=== PATIENT | male | born 1985 | race African-American/Black ===

== ENCOUNTER 2020-06-18 18:31 | Emergency (ER) | payer OTHER, SELFPAY ==
--- NOTE | ~2020-06-18 | CT_ITS ---
EXAMINATION: CT FACIAL BONES CLINICAL INFORMATION: Left-sided facial swelling rule out abscess COMPARISON: None TECHNIQUE: Axial sagittal and coronal with IV contrast. Approximately 85 mL of Omnipaque [address] examination was performed using dose optimization techniques as appropriate, variously including the following: *Automated exposure control *Adjustment of mA and/or kV according to patient size (this includes techniques or standardized protocols for targeted exams where dose is matched to indication/reason for exam; i.e. extremities or head) *Use of iterative reconstruction technique FINDINGS : SKULL BASE: Included structures at skull base are normal. BONES: Skull base, orbital bones, nasal bones, maxillary bones, mandibles, zygomatic arches, and included cervical vertebrae are normal. ORBITS: Globes are symmetric. Orbital structures are normal. SALIVARY GLANDS: Unremarkable SINUSES: There is mucosal thickening of the floor of the right maxillary sinus nonspecific. Soft tissue: CT scan has limited sensitivity evaluating soft tissue however there is some swelling abutting the left mandible, no CT evidence of abscess. CT/CT facial bones w con IMPRESSION: Mild soft tissue swelling adjacent to the left mandible, no CT evidence of an abscess. Mild mucosal thickening of the floor of the right maxillary sinus nonspecific.
[2020-06-18 18:54] VITALS: BP 113/66; PULSE 75; RESP 18; TEMP 37.2; O2SAT 97; BMI 24.3
[2020-06-18 20:12] VITALS: BP 110/81; PULSE 80; RESP 18; TEMP 36.5; O2SAT 97
[2020-06-18 21:12] LABS: MANUAL DIFF FLAG NO
[2020-06-18 21:14] LABS: Basophils Percent Auto 0.2 % (0-2); Eosinophils Absolute Auto 0.1 X10*3/uL (0.0-0.4); Eosinophils Percent Auto 1.3 % (0-4); Hematocrit 40.3 % (42-52); Hemoglobin 13.9 g/dl (14.0-18.0); Imm Gran Abs Auto 0.02 X10*3/uL (0.00-0.03); Imm Gran Pct Auto 0.2 % (0.0-0.4); Lymphocytes Absolute Auto 1.9 X10*3/uL (1.2-4.9); Lymphocytes Percent Auto 21.9 % (20-40); Mean Corpuscular HGB Conc 34.5 g/dl (31.0-36.0); Mean Corpuscular Hemoglobin 29.8 pg (27.0-33.0); Mean Corpuscular Volume 86.5 fL (80-98); Mean Platelet Volume 9.3 fL (9.4-12.4); Monocytes Absolute Auto 0.8 X10*3/uL (0.1-1.2); Monocytes Percent Auto 9.1 % (2-11); Neutrophils Absolute Auto 5.7 X10*3/uL (2.0-8.3); Neutrophils Percent Auto 67.3 % (45-73); Platelet Count 198 X10*3/uL (160-400); Red Blood Count 4.66 X10*6/uL (4.60-5.80); Red Cell Distribution Width 12.4 % (11.0-16.0); White Blood Count 8.5 X10*3/uL (4.8-10.8)
[2020-06-18] MEDS: 0.9 % Sodium Chloride 1,000 ML 999 ML IVCONT (21:16)
[2020-06-18] MEDS: Clindamycin Phosphate/D5W 600 MG/50 ML PIGGYBACK 100 MG IV (21:16)
--- NOTE | 2020-06-18 21:19 | PC.NURSE ---
18G IV Access established in left AC. Labs drawn and sent for analysis. Awaiting results. Plan for imaging with IV contrast. Normal Saline 1L and Cleocin 600mg infusing as ordered. Plan to medicate with Toradol IV for pain. ?facial/dental abscess to the left side of jaw. Swelling and pain to area. Pt is calm/cooperative, and agrees to plan of care.
[2020-06-18 21:50] LABS: Anion Gap 12 (12-20); Blood Urea Nitrogen 23 mg/dL (9-16); C Reactive Protein 0.77 mg/dL (< or = 0.50); Calcium 9.5 mg/dL (8.4-10.2); Carbon Dioxide 28 mmol/L (22-29); Chloride 103 mmol/L (96-108); Creatinine Clr Calc Pharmacy 101.3; Estimated Glomerular Filt Rate > 60; Glucose Random 88 mg/dL (60-115); Sodium 139 mmol/L (135-145)
[2020-06-18] MEDS: Ketorolac Tromethamine 15 MG/ML VIAL IVPUSH (22:17)
--- NOTE | 2020-06-18 22:41 | ED_ITS ---
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 Admits pain shoots to jaw and ear, has dentist appointment on Friday. Denies fever, chills, drainage from area, difficulty/pain with swallowing, oral swelling Related Data Previous Rx's Medication Instructions Recorded clindamycin HCl 450 mg PO Q8H 7 Days #32 cap 06/18/20 Allergies Allergy/AdvReac Type Severity Reaction Status Date / Time No Known Allergies Allergy Verified 06/18/20 18:54 Review of Systems Review of Systems: Constitutional: No Fever, No Chills ENT/Mouth: No Hearing loss, No Ear Pain, No Hoarseness, No sore throat, No Swallowing Difficulty, + cracked tooth, + facial swelling Eyes: No Eye Pain Cardiovascular: No Chest Pain, No SOB Respiratory: No Cough, No Dyspnea Gastrointestinal: No Nausea, No Vomiting, No Abdominal pain Skin: No Skin Lesions, No rash Yes all other systems are reviewed and are negative [facility] Past Medical History Attestation statement: The following information was validated with the patient. Social History Social History Advance Directives: No Advance Directives Information Provided: Yes Physical Exam Vital Signs: Vital Signs: Last Vital Signs Temp 97.7 F 06/18/20 20:12 Pulse 80 06/18/20 20:12 Resp 18 06/18/20 20:12 BP 110/81 06/18/20 20:12 Pulse Ox 97 06/18/20 20:12 Body Mass Index 24.3 Const: General: cooperative, healthy appearing, comfortable and no acute distress Orientation/consciousness: patient oriented x3 Limitations: no limitations HENMT: Other: Left mandibule with notable swelling. Left lower 1st premolar cracked. No gingival erythema/swelling/fluctuance or induration. No pus drainage. TMs wnl. No lymphadenopathy Head: Yes normal to inspection Ears: hearing grossly normal bilaterally, external ears normal and TM's normal bilaterally General nose exam: Normal external nose present Mouth: Normal oral and palatal mucosa present Throat: Yes posterior oropharynx normal, Yes tonsils normal, Yes uvula midline and No peritonsillar mass Eyes: General: appearance normal, both eyes and all related structures EOM: EOMs intact bilaterally Neck: Neck: Yes normal visual inspection, Yes no meningeal signs, Yes trachea midline and Yes supple Resp: Effort & Inspection: normal respiratory effort Cardio: Rate: regular rate Skin: Rashes: no rashes Wounds: no wounds Neuro: General: patient oriented x3 and no meningeal signs Gait exam (Neuro): Normal gait present Extrem: General: Yes normal to inspection Course Course Course Narrative: -no leukocytosis, CRP minimally elevated, BUN mildly elevated CT facial bones w con IMPRESSION: Mild soft tissue swelling adjacent to the left mandible, no CT evidence of an abscess. Mild mucosal thickening of the floor of the right maxillary sinus nonspecific. >> results discussed with patient including worrisome signs and symptoms and strict return precautions. He admits he has follow-up with his dentist on Friday. MDM - Dental/Oral MDM Narrative Medical decision making narrative: 35-year-old male with no significant past medical history presenting to the ED complaining of left-sided facial swelling x3 days s/p cracking his tooth 1 week ago. On exam VSS, NAD/well-appearing, physical exam as above. Notable facial swelling. No appreciable intraoral collection/infection. Concern for dental abscess/infection. Plan: Labs, CT, IV antibiotics, reassess Lab Data Result diagrams: 06/18/20 21:06 06/18/20 21:06 Labs: Lab Results 06/18/20 06/18/20 06/18/20 Range/Units 21:06 21:06 21:06 WBC 8.5 (4.8-10.8) X10*3/uL RBC 4.66 (4.60-5.80) X10*6/uL Hgb 13.9 L (14.0-18.0) g/dl Hct 40.3 L (42-52) % MCV 86.5 (80-98) fL MCH 29.8 (27.0-33.0) pg MCHC 34.5 (31.0-36.0) g/dl RDW 12.4 (11.0-16.0) % Plt Count 198 (160-400) X10*3/uL MPV 9.3 L (9.4-12.4) fL Immature Gran % (Auto) 0.2 (0.0-0.4) % Neut % (Auto) 67.3 (45-73) % Lymph % (Auto) 21.9 (20-40) % [place] % (Auto) 9.1 (2-11) % Eos % (Auto) 1.3 (0-4) % Baso % (Auto) 0.2 (0-2) % Lymph # (Auto) 1.9 (1.2-4.9) X10*3/uL [place] # (Auto) 0.8 (0.1-1.2) X10*3/uL Eos # (Auto) 0.1 (0.0-0.4) X10*3/uL Baso # (Auto) 0.0 (0.0-0.2) X10*3/uL Abs Immat Gran (auto) 0.02 (0.00-0.03) X10*3/uL Absolute Neuts (auto) 5.7 (2.0-8.3) X10*3/uL Absolute Nucleated RBC 0.000 (0.0-0.012) X10*3/uL Nucleated RBC % (auto) 0.0 (0.0-0.2) /100WBC Hold Blue Top SEE NOTE Sodium 139 (135-145) mmol/L Potassium 4.0 (3.3-5.1) mmol/L Chloride 103 (96-108) mmol/L Carbon Dioxide 28 (22-29) mmol/L Anion Gap 12 (12-20) BUN 23 H (9-16) mg/dL Creatinine 1.05 (0.5-1.4) mg/dL Estim Creat Clear Calc 101.3 Estimated GFR > 60 Random Glucose 88 (60-115) mg/dL Calcium 9.5 (8.4-10.2) mg/dL C-Reactive Protein 0.77 H (< or = 0.50) mg/dL Discharge Plan Discharge Clinical Impression: Facial swelling Patient Disposition: Home, Self-Care Instructions: Dental Abscess (ED) Additional Instructions: Your blood work was reassuring today in the ED Your CT scan did not show any drainable collection or abscess, does show swelling in the left side your he has. Clindamycin as an antibiotic please take as prescribed Is important that you follow-up with a dentist as soon as possible, keep urine appointment Ice her face, take Tylenol Motrin for pain If her symptoms persist or worsen, become unbearable, you of swelling in her mouth, are unable to eat or drink, or have difficulty swelling return to the ED immediately Prescriptions: New clindamycin HCl 300 mg capsule 450 mg PO Q8H 7 Days Qty: 32 RF: 0 Referrals: Doug Manuel DMD [Dentist] - 2 days Shannan Boyd DMD [Dentist] - 2 days
[2020-06-18 23:18] LABS: Erythrocyte Sedimentation Rate 2 MM/HR (0-15)
== END 2020-06-18 23:00 | disposition home or self-care (01) ==
PROVIDERS: Physician Assistant; Emergency Provider Emergency Medicine
DX: K04.7 Periapical abscess without sinus (principal); Z79.899 Other long term (current) drug therapy
CPT/HCPCS: 36415; 70487; 80048; 85025; 85652; 86140; 96365; 96375; 99284; J1885

== ENCOUNTER 2020-10-26 12:55 | Outpatient (REF) | payer OTHER, SELFPAY ==
[2020-10-26 14:24] LABS: COVID-19 Test Negative (Negative)
== END 2020-10-26 12:56 | disposition home or self-care (01) ==
LOC: HO.LAB 12:55
PROVIDERS: Visit Provider Internal Medicine
DX: Z20.822 Contact with and (suspected) exposure to COVID-19 (principal)
CPT/HCPCS: 36415; 87635; C9803

== ENCOUNTER 2020-11-04 19:57 | Emergency (ER) | payer OTHER, SELFPAY ==
[2020-11-04 20:01] VITALS: BP 127/83; PULSE 69; RESP 18; TEMP 37.3; O2SAT 98; BMI 24.3
--- NOTE | 2020-11-04 20:15 | ED.GENADULT ---
HPI - General Adult General Chief complaint: General Medical Stated complaint: Facial swelling Time Seen by Provider: 11/04/20 20:14 Source: patient Mode of arrival: ambulatory Limitations: no limitations History of Present Illness HPI narrative: Patient had Ingrown hair on the right face which he removed using a sterilized tweezer today woke up with increased swelling and pain no fever no chills open wound with minimum pus discharge Related Data Previous Rx's Medication Instructions Recorded clindamycin HCl 300 mg capsule 450 mg PO Q8H 7 Days #32 cap 06/18/20 hydrocodone 5 mg-acetaminophen 325 1 tab PO Q8H PRN 3 Days #5 tab 06/18/20 mg tablet cephalexin 500 mg capsule 500 mg PO QID 10 Days #40 cap 11/04/20 doxycycline hyclate 100 mg tablet 100 mg PO BID #20 tab 11/04/20 ibuprofen 600 mg tablet 600 mg PO Q6H PRN #20 tab 11/04/20 oxycodone 5 mg tablet 5 mg PO Q6H PRN #20 tab 11/04/20 Allergies Allergy/AdvReac Type Severity Reaction Status Date / Time amoxicillin Allergy Unknown Verified 11/04/20 20:00 Review of Systems Review of Systems: Yes all other systems are reviewed and are negative PMFSH Past Medical History Surgical History H/O: vasectomy S/P appendectomy Social History Social History Advance Directives: No Advance Directives Information Provided: No Physical Exam Vital Signs: Vital Signs: Last Vital Signs Temp 99.2 F 11/04/20 20:01 Pulse 69 11/04/20 20:01 Resp 18 11/04/20 20:01 BP 127/83 11/04/20 20:01 Pulse Ox 98 11/04/20 20:01 Body Mass Index 24.3 Const: General: no acute distress and well developed Orientation/consciousness: patient oriented x3 HENMT: Head: Yes normocephalic Face and sinus: Yes sinuses nontender, Yes erythema and Yes edema Face images: 1. Small indurated area with cellulitis around No abscess palpable Neck: Neck: Yes normal visual inspection and No lymphadenopathy Neuro: General: patient oriented x3 Discharge Plan Discharge Clinical Impression: Cellulitis and abscess of face Patient Disposition: Home, Self-Care Instructions: Cellulitis (ED), Abscess (ED) Additional Instructions: Warm compresses Take antibiotic as advised Report to the ER if swelling gets worse Prescriptions: New cephalexin 500 mg capsule 500 mg PO QID 10 Days Qty: 40 RF: 0 ibuprofen 600 mg tablet 600 mg PO Q6H PRN (Reason: pain) Qty: 20 RF: 0 doxycycline hyclate 100 mg tablet 100 mg PO BID Qty: 20 RF: 0 oxycodone 5 mg tablet 5 mg PO Q6H PRN (Reason: Pain, Moderate) Qty: 20 RF: 0 No Action clindamycin HCl 300 mg capsule 450 mg PO Q8H 7 Days Qty: 32 RF: 0 hydrocodone-acetaminophen 5-325 mg tablet 1 tab PO Q8H PRN (Reason: pain, severe) 3 Days Qty: 5 RF: 0
[2020-11-04] MEDS: cephALEXin 500 MG CAPSULE PO (20:38)
[2020-11-04] MEDS: Ibuprofen 600 MG TABLET PO (20:38)
[2020-11-04] MEDS: oxyCODONE HCl Immed Release 5 MG TABLET PO (20:39)
== END 2020-11-04 20:42 | disposition home or self-care (01) ==
PROVIDERS: Emergency Provider Internal Medicine
DX: L03.211 Cellulitis of face (principal); Z79.899 Other long term (current) drug therapy
CPT/HCPCS: 99283; 99284

== ENCOUNTER 2021-02-05 | Outpatient (REF) | payer OTHER, SELFPAY | END 2021-02-05 00:01 | disposition home or self-care (01) | LOC: HO.LAB | PROVIDERS: Visit Provider Internal Medicine | DX: Z13.89 Encounter for screening for other disorder (principal) | CPT/HCPCS: C9803; U0003; U0005 ==

== ENCOUNTER 2021-03-17 21:22 | Emergency (ER) | payer SELFPAY ==
[2021-03-17 21:29] VITALS: BP 130/81; PULSE 94; RESP 16; TEMP 37; O2SAT 97; BMI 23.6
--- NOTE | 2021-03-17 21:44 | ED_ITS ---
HPI - Skin/Abscess/Foreign Bdy General Chief complaint: Skin/Abscess/Foreign Body Stated complaint: ingrown hair a face,,swollen Time Seen by Provider: 03/17/21 21:39 History of Present Illness HPI narrative: Patient is a 36-year-old male with a history of facial swelling to the left f pia. Has a history of ingrown facial hair. Complaining of increasing swelling over the last 2 days. Was seen here last year for similar symptoms. At the time was given Keflex. Patient came back today because of the swelling. There is discharge from the area where the ingrown hair is located. Patient was expressing lots of purulence discharge from that area. Denies any headache. Denies any changes in vision. There is no difficulty with speech. No difficulty swallowing. No difficulty breathing. Patient from home. No history of recreational drug use. No history of immunocompromise state. Related Data Previous Rx's Medication Instructions Recorded clindamycin HCl 300 mg capsule 450 mg PO Q8H 7 Days #32 cap 06/18/20 hydrocodone 5 mg-acetaminophen 325 1 tab PO Q8H PRN 3 Days #5 tab 06/18/20 mg tablet cephalexin 500 mg capsule 500 mg PO QID 10 Days #40 cap 11/04/20 doxycycline hyclate 100 mg tablet 100 mg PO BID #20 tab 11/04/20 ibuprofen 600 mg tablet 600 mg PO Q6H PRN #20 tab 11/04/20 oxycodone 5 mg tablet 5 mg PO Q6H PRN #20 tab 11/04/20 doxycycline hyclate 100 mg capsule 100 mg PO BID 7 Days #14 cap 03/17/21 Allergies Allergy/AdvReac Type Severity Reaction Status Date / Time amoxicillin Allergy Unknown Verified 11/04/20 20:00 Review of Systems Verdana 4l Review of Systems: Verdana 4d Positive facial swelling Verdana 4d no change in speech no nausea no vomiting no difficulty eating no fever no difficulty breathing all system reviewed otherwise negative Verdana 4d PMFSH Past Medical History Attestation statement: The following information was validated with the patient. Surgical History H/O: vasectomy S/P appendectomy Social History Social History Advance Directives: No Physical Exam Verdana 4l Vital Signs: Verdana 4d Verdana 4d Vital Signs: Verdana 4d Verdana 4Bd Last Vital Signs Verdana 4d Employment Interviewer 4d Adalberto 4d Temp 98.6 F 03/17/21 21:29 Employment Interviewer New 4d Pulse 94 03/17/21 21:29 Employment Interviewer New 4d Resp 16 03/17/21 21:29 BP 130/81 03/17/21 21:29 Pulse Ox 97 03/17/21 21:29 BMI result Body Mass Index 23.6 Appearance: Alert. Oriented X3. No acute distress. Eyes: Pupils equal, round and reactive to light. ENT: Pharynx normal. significant facial swelling to the left side. There is no gross Fluctuance noted. There is an area that there is small amount of purulence discharge still draining. Significant swelling. Extraocular muscle intact. Posterior pharynx was normal. There is no tooth abscess palpable. Neck: Normal inspection. Neck supple. No lymph nodes noted. No crepitus CVS: Normal heart rate and rhythm. Pulses normal. Normal S1 and S2 Respiratory: No respiratory distress. Breath sounds normal. No Wheezing. No rales Abdomen: Soft and nontender. No rigidity. No distention. good BS x4 Skin: Positive cellulitis noted over the left face Extremities: No lower extremity edema. Neurovascular intact to all extremities. No Lacerations. No Rash Neuro: Oriented X 3. No motor deficit. No sensory deficit. Moving all extermities. No slurred speech MDM - Skin/Abscess/Foreign Bdy MDM Narrative Medical decision making narrative: discussed with patient the need for imaging. IV antibiotic labs. Patient did not want any labs. Understood that without the CT scan we cannot be sure that there is no abscess. Patient just wants antibiotics. Explained to patient the infection is an area very close to his brain. Further advancement of the infection can cause him harm. Including . Patient states understanding. Only wants the IV antibiotic and a prescription. He signing out against medical advice. Patient told to come back immediately if condition worsen. Follow up closely with his doctor on an outpatient basis take a picture every day. Take his antibiotic religiously. Patient states understanding. A dose of Ancef and a dose of doxycycline was given in the emergency department. Discharge Plan Discharge Clinical Impression: Cellulitis Patient Disposition: Left Against Medical Advice Instructions: Cellulitis (DC), Against Medical Advice (ED) Prescriptions: New doxycycline hyclate 100 mg capsule 100 mg PO BID 7 Days Qty: 14 0RF No Action clindamycin HCl 300 mg capsule 450 mg PO Q8H 7 Days Qty: 32 0RF hydrocodone-acetaminophen 5-325 mg tablet 1 tab PO Q8H PRN (Reason: pain, severe) 3 Days Qty: 5 0RF cephalexin 500 mg capsule 500 mg PO QID 10 Days Qty: 40 0RF ibuprofen 600 mg tablet 600 mg PO Q6H PRN (Reason: pain) Qty: 20 0RF doxycycline hyclate 100 mg tablet 100 mg PO BID Qty: 20 0RF oxycodone 5 mg tablet 5 mg PO Q6H PRN (Reason: Pain, Moderate) Qty: 20 0RF Referrals: Physician,None [Primary Care Provider] - 2 days ( Follow up with your physician in 2 days. Fever chills change of my return to the emergency department immediately. Risk of significant infection exists. Come back if he change of mind about getting imaging and additional testing.)
[2021-03-17 22:40] VITALS: BP 122/79; PULSE 84; RESP 18; TEMP 35.9; O2SAT 98
== END 2021-03-17 22:53 | disposition left against medical advice (07) ==
PROVIDERS: Emergency Provider Emergency Medicine Emergency Medical Services
DX: L03.211 Cellulitis of face (principal)
CPT/HCPCS: 96365; 99284; J0690

== ENCOUNTER 2021-03-18 12:42 | Emergency (ER) | payer SELFPAY ==
--- NOTE | ~2021-03-18 | CT_ITS ---
EXAMINATION: CT FACIAL BONES WITH CONTRAST CLINICAL INFORMATION: Left facial abscess. COMPARISON: None TECHNIQUE: Axial 3 mm thin and reformatted 1.5 minutes thin sagittal coronal images of facial bones were obtained without contrast. This CT examination was performed using dose optimization techniques as appropriate, variously including the following: *Automated exposure control *Adjustment of mA and/or kV according to patient size (this includes techniques or standardized protocols for targeted exams where dose is matched to indication/reason for exam; i.e. extremities or head) *Use of iterative reconstruction technique DLP: 326 mGy-cm FINDINGS: There is no acute maxillofacial fracture. The pterygoid plates are intact. The zygomatic arches are intact. The lamina papyracea are intact. The orbital rims are intact. There is minimal mucoperiosteal thickening bilateral maxillary sinuses. Bilateral mastoid sinuses are clear. No air-fluid levels are seen. There is midline nasal septum. The turbinates are symmetrical and normal The ostiomeatal complexes are clear. The lamina papyracea are intact. The ethmoid roofs are symmetric. The carotid canals are normally covered by bone. There is moderate left maxillary soft tissue swelling likely cellulitis. There is no drainable abscess. No maxillary or mandibular periapical disease is seen. The mastoid air cells and visualized middle ear cavities are well-aerated. There are reactionary lymph nodes in the left neck measuring 1.1 x 0.8 cm level 2 and 1.5 cm x 0.5 cm level 3 left neck. Few scattered lymph nodes are seen in level 4 as well. The orbits are normal. The TMJs are unremarkable. The imaged portions of the brain demonstrate no acute abnormality. CT/CT facial bones w con IMPRESSION: Moderate left maxillary soft tissue swelling/cellulitis. There is no drainable abscess. Visualized salivary glands are symmetrical and normal. No periapical disease, bony erosive changes involving the mandibular maxillary cortex. Reactionary abnormal lymph nodes level 2, level 3 and level 4.
[2021-03-18 12:48] VITALS: BP 152/90; PULSE 88; RESP 18; TEMP 38.1; O2SAT 97; BMI 23.6
[2021-03-18 13:03] LABS: Hemoglobin 12.9 g/dl (14.0-18.0); Mean Corpuscular HGB Conc 34.9 g/dl (31.0-36.0); Mean Corpuscular Hemoglobin 29.9 pg (27.0-33.0); Mean Corpuscular Volume 85.8 fL (80.0-98.0); Platelet Count 178 X10*3/uL (160-400); Red Blood Count 4.31 X10*6/uL (4.60-5.80); Red Cell Distribution Width 11.9 % (11.0-16.0); White Blood Count 17.3 X10*3/uL (4.8-10.8)
[2021-03-18 13:23] LABS: Anion Gap 12 (12-20); Blood Urea Nitrogen 15 mg/dL (9-16); Calcium 9.3 mg/dL (8.4-10.2); Carbon Dioxide 31 mmol/L (22-29); Chloride 93 mmol/L (96-108); Creatinine Clr Calc Pharmacy 121.2; Estimated Glomerular Filt Rate > 60; Glucose Random 135 mg/dL (60-115); Potassium 3.7 mmol/L (3.3-5.1); Sodium 132 mmol/L (135-145)
[2021-03-18 14:25] VITALS: BP 117/70; PULSE 94; RESP 16; TEMP 37.2; O2SAT 98
--- NOTE | 2021-03-18 14:43 | ED_ITS ---
HPI - Skin/Abscess/Foreign Bdy General Chief complaint: Skin/Abscess/Foreign Body Stated complaint: facial infection Time Seen by Provider: 03/18/21 14:21 Source: patient Mode of arrival: ambulatory Limitations: no limitations History of Present Illness HPI narrative: 36-year-old male who was seen in the emergency room yesterday for left facial swelling from an ingrown hair. Patient's face only became very swollen in the last 2 days. He has been expressing pus, and using warm compresses. States that abscess is still draining. Yesterday patient only wanted antibiotics, did not want imaging, signed out AMA after being given 1 dose of Ancef and a prescription for doxycycline. Patient has taken 2 doses of doxycycline, but states that he has returned because his face is not better. States he had the same thing happened in October 2020. States that it resolved with antibiotics. MD complaint: abscess/boil Onset (ago): day(s) (2) Tetanus up to date: unsure Location: face Severity: severe Severity scale (1-10): 6 Quality: aching Pain Consistency: constant Associated symptoms: denies other symptoms Treatments prior to arrival: antibiotic Related Data Previous Rx's Medication Instructions Recorded clindamycin HCl 300 mg capsule 450 mg PO Q8H 7 Days #32 cap 06/18/20 hydrocodone 5 mg-acetaminophen 325 1 tab PO Q8H PRN 3 Days #5 tab 06/18/20 mg tablet cephalexin 500 mg capsule 500 mg PO QID 10 Days #40 cap 11/04/20 doxycycline hyclate 100 mg tablet 100 mg PO BID #20 tab 11/04/20 ibuprofen 600 mg tablet 600 mg PO Q6H PRN #20 tab 11/04/20 oxycodone 5 mg tablet 5 mg PO Q6H PRN #20 tab 11/04/20 doxycycline hyclate 100 mg capsule 100 mg PO BID 7 Days #14 cap 03/17/21 Allergies Allergy/AdvReac Type Severity Reaction Status Date / Time amoxicillin Allergy Unknown Verified 11/04/20 20:00 Review of Systems Verdana 4l Constitutional: Verdana 4d Verdana 4d Constitutional: Verdana 4d Denies body ache(s), Denies chills, Denies fatigue, Denies fever(s), Denies headache(s), Denies malaise and Denies weakness Verdana 4l Eyes: Verdana 4d Verdana 4d Eyes: Verdana 4d Denies diplopia Verdana 4l ENT: Verdana 4d Denies vertigo, Denies dizziness, Denies otalgia, Reports facial pain, Denies headache(s), Reports lip swelling, Denies mouth pain, Denies post nasal drip, Denies sinus pain, Denies sinus pressure, Denies sore throat and Denies throat swelling VerdanaVerdana 4d Comments: facial swelling, no dental pain Cardiovascular: Cardiovascular: Denies chest pain, Denies syncope, Denies leg edema, Denies lightheadedness, Denies Loss of Consciousness, Denies palpitations and Denies dyspnea Respiratory: Respiratory: Denies chest congestion, Denies cough and Denies dyspnea Gastrointestinal: Gastrointestinal: Denies abdominal pain, Denies hematochezia, Denies constipation, Denies diarrhea and Denies vomiting Musculoskeletal: Musculoskeletal: Reports no additional musculoskeletal complaints Neurologic: Denies confusion, Denies vertigo, Denies dizziness, Denies syncope, Denies headache(s) and Denies weakness Psychiatric: Psychiatric: Denies anxiety, Denies confusion and Denies depression Endocrine: Endocrine: Denies fatigue and Denies palpitations Allergic/Immunologic: Allergic/Immunologic: Reports lip swelling and Denies throat swelling PMFSH Past Medical History Medical History (Updated 03/18/21 @ 16:54 by AURORA Rodriguez) Cellulitis and abscess of face Surgical History H/O: vasectomy S/P appendectomy Social History Social History Advance Directives: No Advance Directives Information Provided: Yes Physical Exam Verdana 4l Vital Signs: Verdana 4d Verdana 4d Vital Signs: Verdana 4d Verdana 4Bd Last Vital Signs Verdana 4d Dampener New 4d Dampener New 4d Temp 99.0 F 03/18/21 14:25 Dampener New 4d Pulse 94 03/18/21 14:25 Dampener New 4d Resp 16 03/18/21 14:25 BP 117/70 03/18/21 14:25 Pulse Ox 98 03/18/21 14:25 BMI result Body Mass Index 23.6 Const: General: No confusion Nutritional Appearance: well nourished Orientation/consciousness: No confusion Limitations: no limitations HENMT: Head: Yes other (swollen left side of face) Ears: hearing grossly normal bilaterally, external ears normal, mastoids normal and no periauricular adenopathy General nose exam: Normal external nose present Face and sinus: No face symmetric, Yes erythema and Yes sinus tenderness Face images: 1. swelling and erythema with pinpoint fluctuance Mouth: no audible dysphonia, no drooling and lip abnormal Teeth and gingiva: dentition normal Throat: Yes posterior oropharynx normal, Yes uvula midline and No peritonsillar mass Eyes: Conjunctivae: conjunctivae normal Pupils: Equal, round and reactive pupils present EOM: EOMs intact bilaterally Neck: Neck: Yes full ROM, Yes no lymphadenopathy and Yes supple Resp: Effort & Inspection: normal respiratory effort and able to speak in complete sentences Auscultation: clear to auscultation bilaterally, no crackles, no rales, no rhonchi and no wheezes Cardio: Rate: regular rate Rhythm: regular rhythm Heart sounds: S1 normal heart sound present and S2 normal heart sound present Neuro: General: No confusion Cranial nerves: Yes Equal, round and reactive pupils present Extrem: General: Yes normal to inspection and Yes full ROM Psych: Appearance: grossly normal Affect: normal affect Attitude: cooperative Thought process: Normal thought process present Course Course Course Narrative: 36-year-old male presents for left-sided facial abscess. Patient was seen emergency room yesterday and prescribed doxycycline. On presentation today, patient was febrile 100.6, and has a luekocytosis 17.3. actic 0.9. Labs are all otherwise unremarkable Awaiting results of facial CT. Patient is getting 1 dose of IV antibiotics, giving cefepime. I did order vancomycin and anticipating admission, the patient says he needs to go home 1st before he can be admitted. Pt cannot stay for vanco. We did draw blood cultures. Dr Wagner saw pt today with me, he saw pt yesterday, says his facial abscess is no worse. Said is less red, but has upper eyelid swelling today. Pt states he has to go home to take care of his daughter. We advised him that now with a fever, he should stay and be admitted for IV antibiotics. Pt states he must go home. Advised he can go home AMA, and return, and Dr Wagner will admit him for IV antibiotics. Pt left AMA, did not wait for CT results Reevaluation(s) Reevaluation #1: CT/CT facial bones w con IMPRESSION: Moderate left maxillary soft tissue swelling/cellulitis. There is no drainable abscess. Visualized salivary glands are symmetrical and normal. ? No periapical disease, bony erosive changes involving the mandibular maxillary cortex. ? Reactionary abnormal lymph nodes level 2, level 3 and level 4. MDM - Skin/Abscess/Foreign Bdy Lab Data Result diagrams: 03/18/21 12:57 03/18/21 12:57 Labs: Lab Results 03/18/21 03/18/21 03/18/21 Range/Units 12:57 12:57 15:33 WBC 17.3 H (4.8-10.8) X10*3/uL RBC 4.31 L (4.60-5.80) X10*6/uL Hgb 12.9 L (14.0-18.0) g/dl Hct 37.0 L (42.0-52.0) % MCV 85.8 (80.0-98.0) fL MCH 29.9 (27.0-33.0) pg MCHC 34.9 (31.0-36.0) g/dl RDW 11.9 (11.0-16.0) % Plt Count 178 (160-400) X10*3/uL MPV 9.0 L (9.4-12.4) fL Absolute Nucleated RBC 0.000 (0.0-0.012) X10*3/uL Nucleated RBC % (auto) 0.0 (0.0-0.2) /100WBC Sodium 132 L (135-145) mmol/L Potassium 3.7 (3.3-5.1) mmol/L Chloride 93 L (96-108) mmol/L Carbon Dioxide 31 H (22-29) mmol/L Anion Gap 12 (12-20) BUN 15 (9-16) mg/dL Creatinine 0.87 (0.5-1.4) mg/dL Estim Creat Clear Calc 121.2 Estimated GFR > 60 Random Glucose 135 H D (60-115) mg/dL Lactic Acid 0.9 (0.5-2.0) mmol/L Calcium 9.3 (8.4-10.2) mg/dL Discharge Plan Discharge Clinical Impression: Cellulitis and abscess of face Patient Disposition: Left Against Medical Advice Prescriptions: No Action clindamycin HCl 300 mg capsule 450 mg PO Q8H 7 Days Qty: 32 0RF hydrocodone-acetaminophen 5-325 mg tablet 1 tab PO Q8H PRN (Reason: pain, severe) 3 Days Qty: 5 0RF cephalexin 500 mg capsule 500 mg PO QID 10 Days Qty: 40 0RF ibuprofen 600 mg tablet 600 mg PO Q6H PRN (Reason: pain) Qty: 20 0RF doxycycline hyclate 100 mg tablet 100 mg PO BID Qty: 20 0RF oxycodone 5 mg tablet 5 mg PO Q6H PRN (Reason: Pain, Moderate) Qty: 20 0RF doxycycline hyclate 100 mg capsule 100 mg PO BID 7 Days Qty: 14 0RF Interventions: ED Discharge Assessment Last Done: 03/18/21 16:46 Discharge Date/Time: 03/18/21 16:46
--- NOTE | 2021-03-18 15:15 | HE.PHANOTE ---
Vancomycin dosing- dose changed to loading dose of 1500mg (20mg/kg). Will follow up if hospitalist continues. Eric SalcedoD
--- NOTE | 2021-03-18 15:35 | P.CONGS_ITS ---
History of Present Illness Consult details Consult date: 03/18/21 Narrative: 35m here in the ED for swelling on an area of the elft cheek. He was here last night for thissame problem. He descibes this swelling as having started yesterday. There was some redness on the area, but he denies drainage. He left AMA last night but came back because of worsening swelling. He says he had a similar swelling befiore and has problems with ingrown hair. He denies any trauma or insect bite. Review of Systems Verdana 4l Constitutional: Verdana 4d Constitutional: Verdana 4d Verdana 4d Denies chills and Denies fever(s) Verdana 4l Cardiovascular: Verdana 4d Cardiovascular: Verdana 4d Verdana 4d Denies chest pain, Denies dyspnea and Denies dyspnea on exertion Verdana 4l Respiratory: Verdana 4d Verdana 4d Respiratory: Verdana 4d Denies cough, Denies dyspnea and Denies dyspnea on exertion Verdana 4l Gastrointestinal: Verdana 4d Gastrointestinal: Verdana 4d Verdana 4d Denies hematochezia and Denies change in bowel habits Verdana 4l Genitourinary: Verdana 4d Verdana 4d Genitourinary: Verdana 4d Denies hematuria and Denies difficulty urinating Verdana 4l Musculoskeletal: Verdana 4d Musculoskeletal: Verdana 4d Verdana 4d Denies back pain and Denies limited range of motion Verdana 4l Neurologic: Verdana 4d Denies focal weakness and Denies convulsions Verdana 4l Psychiatric: Verdana 4d Verdana 4d Psychiatric: Verdana 4d Denies depression and Denies mood swings PMF Past Medical History Medical History Cellulitis and abscess of face Surgical History Surgical History H/O: vasectomy S/P appendectomy Social History Social History Advance Directives: No Meds Allergies Allergy/AdvReac Type Severity Reaction Status Date / Time amoxicillin Allergy Unknown Verified 11/04/20 20:00 Active Medications: Current Medications Sodium Chloride (Ns) 2,245.29 mls @ 2,245.29 mls/hr 30 ml/kg infuse over 1 hr (2245.29 ml) IV .Q1H STA Stop: 03/18/21 15:55 Vancomycin HCl 1,500 mg/ (Sodium Chloride) 500 mls @ 333.333 mls/hr IV ONCE ONE Stop: 03/18/21 16:43 Pharmacy Consult (Consult Rx Vancomycin Dosing) 1 each MISCELLANE DAILY PRN PRN Reason: Consult order Home Medications Medication Instructions Recorded Confirmed Last Taken Type No Known Home Meds 03/19/21 03/19/21 Unknown History Physical Exam Verdana 4l Vital Signs: Verdana 4d Verdana 4d Vital Signs: Verdana 4d Verdana 4Bd Last Vital Signs Verdana 4d Child Care Lead Teacher New 4d Child Care Lead Teacher New 4d Temp 99.0 F 03/18/21 14:25 Child Care Lead Teacher New 4d Pulse 94 03/18/21 14:25 Child Care Lead Teacher New 4d Resp 16 03/18/21 14:25 BP 117/70 03/18/21 14:25 Pulse Ox 98 03/18/21 14:25 BMI result Body Mass Index 23.6 Const: General: comfortable and no acute distress Orientation/consciousness: patient oriented x3 HENMT: Other: left cheek near dickson - large area of induration, ?central fluctuance, redness, mild tenderness, edema of surround cheek Neck: Neck: Yes no lymphadenopathy Resp: Auscultation: clear to auscultation bilaterally Cardio: Rhythm: regular rhythm GI: Palpation (GI): Soft to palpation, nontender and no guarding Neuro: General: patient oriented x3 Results Labs Result diagrams: 03/18/21 12:57 03/18/21 12:57 Labs: Abnormal lab results 03/18/21 03/18/21 Range/Units 12:57 12:57 WBC 17.3 H (4.8-10.8) X10*3/uL RBC 4.31 L (4.60-5.80) X10*6/uL Hgb 12.9 L (14.0-18.0) g/dl Hct 37.0 L (42.0-52.0) % MPV 9.0 L (9.4-12.4) fL Sodium 132 L (135-145) mmol/L Chloride 93 L (96-108) mmol/L Carbon Dioxide 31 H (22-29) mmol/L Random Glucose 135 H D (60-115) mg/dL Short CBC 03/18/21 Range/Units 12:57 WBC 17.3 H (4.8-10.8) X10*3/uL Hgb 12.9 L (14.0-18.0) g/dl Hct 37.0 L (42.0-52.0) % Plt Count 178 (160-400) X10*3/uL BMP 03/18/21 12:57 Sodium 132 L Potassium 3.7 Chloride 93 L Carbon Dioxide 31 H BUN 15 Creatinine 0.87 Calcium 9.3 All other labs normal. Assessment and Plan (1) Cellulitis and abscess of face: Status: Acute I explained to him that it would be ebst to do an ia nd D unde rlocal anesthesia to make sure there is no fluid collection. His CT scan shows a lot of soft tissue edema and inflammation but there is no obvious abscess. However, there seems to a small area of central fluctuance, and in view of the large induration, I told him it is best to do an I and D and IV abx. He says he really needs to leave now and just came because he was instructed to come back last night. He does does not wants naything done except for oral antibiotics, and syas he had exactly the same problem last year with the same severity, and that had resolved with just antibiotics. He understands my recommendation is to drain and for him to stay for IV abx, but he has refused. The ED physician was involved with the discussion. Procedures Date of Service Date of Service: 03/18/21
[2021-03-18 15:52] LABS: Lactic Acid 0.9 mmol/L (0.5-2.0)
[2021-03-18] MEDS: iohexoL 350 MG/ML 100 ML INFUS..BTL 85 ML IV (16:14)
[2021-03-18] MEDS: cefEPime HCl 2 GM in 0.9 % Sodium Chloride 50 ML IV (16:16)
[2021-03-18] MEDS: Diphth,Pertus(ACell),Tet Adult 0.5 ML SYRINGE IM (16:40)
== END 2021-03-18 16:47 | disposition left against medical advice (07) ==
PROVIDERS: Physician Assistant; Emergency Provider Emergency Medicine
DX: L03.211 Cellulitis of face (principal); L02.01 Cutaneous abscess of face; Z79.899 Other long term (current) drug therapy
CPT/HCPCS: 36415; 70487; 80048; 83605; 85027; 87040; 87071; 87077; 87186; 87205; 90471; 90715; 96360; 96361; 96372; 99283; 99284; J0692; Q9967

== ENCOUNTER 2021-03-19 00:34 | Inpatient (IN) | payer SELFPAY ==
[2021-03-19 00:40] VITALS: BP 133/89; PULSE 115; RESP 18; TEMP 37.6; O2SAT 98; BMI 23.6
--- NOTE | 2021-03-19 00:43 | ED_ITS ---
HPI - Skin/Abscess/Foreign Bdy General Chief complaint: General Medical Stated complaint: Face swelling Time Seen by Provider: 03/19/21 00:38 History of Present Illness HPI narrative: Patient is a 36-year-old male presented to the emergency department the last 2 days for a redness cellulitis infection to the left face. Patient decided to come back this morning. Positive pain localized area. There is no difficulty breathing. There is no difficulty swallowing. Patient's voice is normal. No cough no congestion or upper respiratory symptoms. No dental issues. Patient from home. Patient left against medical advice 2 days in a row. During the 1st visit patient was given doxycycline on an outpatient basis after dose of IV antibiotic was given. Yesterday patient was given a dose of cefepime. Unable to give patient a dose of vancomycin as patient wanted to leave. Related Data Previous Rx's Medication Instructions Recorded clindamycin HCl 300 mg capsule 450 mg PO Q8H 7 Days #32 cap 06/18/20 hydrocodone 5 mg-acetaminophen 325 1 tab PO Q8H PRN 3 Days #5 tab 06/18/20 mg tablet cephalexin 500 mg capsule 500 mg PO QID 10 Days #40 cap 11/04/20 doxycycline hyclate 100 mg tablet 100 mg PO BID #20 tab 11/04/20 ibuprofen 600 mg tablet 600 mg PO Q6H PRN #20 tab 11/04/20 oxycodone 5 mg tablet 5 mg PO Q6H PRN #20 tab 11/04/20 doxycycline hyclate 100 mg capsule 100 mg PO BID 7 Days #14 cap 03/17/21 Allergies Allergy/AdvReac Type Severity Reaction Status Date / Time amoxicillin Allergy Unknown Verified 11/04/20 20:00 Review of Systems Verdana 4l Review of Systems: Verdana 4d Positive swelling to the Verdana 4d left face Verdana 4d Yes all other systems are reviewed and are negative [facility] Past Medical History Attestation statement: The following information was validated with the patient. Medical History Cellulitis and abscess of face Surgical History H/O: vasectomy S/P appendectomy Social History Social History Advance Directives: No Physical Exam Verdana 4l Vital Signs: Verdana 4d Verdana 4d Vital Signs: Verdana 4d Verdana 4d Appearance: Alert. Oriented X3. No acute distress. Eyes: Pupils equal, round and reactive to light. ENT: Pharynx normal. Neck: Normal inspection. Neck supple. No lymph nodes noted. No crepitus CVSCVS: Normal heart rate and rhythm. Pulses normal. Normal S1 and S2 Respiratory: No respiratory distress. Breath sounds normal. No Wheezing. No rales Abdomen: Soft and nontender. No rigidity. No distention. good BS x4 Skin: Positive swelling to the left face. All the way up to the upper lid. The eye does not seem to be affected. There is no gross dental abscess palpable. There is an area of drainage noted near the cheek. The redness extends all the way down to the mandibular area. There is no malocclusion noted. The floor the mouth was soft. The skin was warm to touch and red. Extremities: No lower extremity edema. Neurovascular intact to all extremities. No Lacerations. No Rash Neuro: Oriented X 3. No motor deficit. No sensory deficit. Moving all extermities. No slurred speech MDM - Skin/Abscess/Foreign Bdy MDM Narrative Medical decision making narrative: Patient has cellulitis with fever yesterday. Had been on antibiotic for 2 days. Given patient has a fever yesterday. He is willing to stay at the current time. Will admit for IV antibiotics. Patient's CT scan was just done last night. It did not show an abscess. Cellulitis only. Currently in stable condition case discussed with hospitalist team. Patient's lactate was normal no evidence for sepsis. Differential Diagnosis Differential diagnosis: Likely cellulitis Medical Records Attestation: I reviewed the patient's medical records. Lab Data Attestation: I reviewed the patient's lab results. Discharge Plan Discharge Prescriptions: No Action clindamycin HCl 300 mg capsule 450 mg PO Q8H 7 Days Qty: 32 0RF hydrocodone-acetaminophen 5-325 mg tablet 1 tab PO Q8H PRN (Reason: pain, severe) 3 Days Qty: 5 0RF cephalexin 500 mg capsule 500 mg PO QID 10 Days Qty: 40 0RF ibuprofen 600 mg tablet 600 mg PO Q6H PRN (Reason: pain) Qty: 20 0RF doxycycline hyclate 100 mg tablet 100 mg PO BID Qty: 20 0RF oxycodone 5 mg tablet 5 mg PO Q6H PRN (Reason: Pain, Moderate) Qty: 20 0RF doxycycline hyclate 100 mg capsule 100 mg PO BID 7 Days Qty: 14 0RF
--- NOTE | 2021-03-19 00:52 | PC.NURSE ---
Per MD Wagner, no repeat labs required as all were obtained @ previous visit on 03/18. IV established, Covid swab obtained. Pt medicated per APR. Med Rec completed at bedside with pt.
[2021-03-19] MEDS: vancomycin HCL 1,000 MG in 0.9 % Sodium Chloride 250 ML 270 MG IV (00:59)
[2021-03-19] MEDS: 0.9 % Sodium Chloride 1,000 ML 999 ML IV (00:59)
[2021-03-19] MEDS: Acetaminophen 325 MG TABLET 650 MG PO (01:04)
[2021-03-19 01:29] LABS: COVID-19 Test Negative (Negative)
[2021-03-19 02:00] VITALS: BP 117/69; PULSE 82; RESP 16; TEMP 37.1; O2SAT 98
--- NOTE | 2021-03-19 02:28 | P.HPHOSP_ITS ---
History of Present Illness Date of Service: 03/19/21 Chief Complaint: Left facial swelling 36-year-old male with a past medical history of facial cellulitis secondary to ingrown hair; otherwise no significant past medical history presented to the hospital today a chief complaint of left facial pain and swelling over the past 2-3 days. Patient reported that for the past 3 days he has been having left side of the face swelling, erythematous, tender; denies any fevers. Initially presented to the ER couple days ago and does not want to stay, was given antibiotics. Presented today to the ER again with worsening cellulitis and discharge from small open wound. Noted white pus discharge. Denies any swallowing difficulty, denies any difficulty chewing. Denies any oral swelling. Denies any intra ocular changes, redness; Mentions that his whole left side of the face is swollen including the upper and lower lids similar to the last time. Denies any headaches or blurry visions. Review of all other systems is negative except mentioned above ER course: Per ER team patient initially presented during the morning, had a facial CT done which showed facial cellulitis; recommended admission for IV antibiotics-but patient left AMA and came back in the evening; and decided to be admitted to the hospital for IV antibiotics. Patient received vancomycin. Admitted for further management. [facility] Medical History Cellulitis and abscess of face Pertinent family history: Reviewed Surgical History H/O: vasectomy S/P appendectomy Social History Advance Directives: No Meds Allergies Allergy/AdvReac Type Severity Reaction Status Date / Time amoxicillin Allergy Unknown Verified 11/04/20 20:00 Active Medications: Current Medications Vancomycin HCl 1,000 mg/ (Sodium Chloride) 270 mls @ 270 mls/hr IV Q12H [facility] Pharmacy Consult (Consult Rx Vancomycin Dosing) 1 each MISCELLANE DAILY PRN PRN Reason: Consult order Pharmacy Consult (Consult Rx Vancomycin Dosing) 1 each MISCELLANE DAILY PRN PRN Reason: Consult order Home Medications Medication Instructions Recorded Confirmed Last Taken Type No Known Home Meds 03/19/21 03/19/21 Unknown History Physical Exam Vital Signs and Narrative: Vital Signs: Last Vital Signs Temp 98.8 F 03/19/21 02:00 Pulse 82 03/19/21 02:00 Resp 16 03/19/21 02:00 BP 117/69 03/19/21 02:00 Pulse Ox 98 03/19/21 02:00 BMI result Body Mass Index 23.6 Gen: Appears be in no acute distress HEENT: NCAT, Moist mucosa. EOMI. Left side of the face is warm,tender and swollen. Draining pus. Left cheek is indurated. Oral cavity is clear. Pulmonary: Vesicular breath sounds, fair air entry CVS: Normal S1-S2 Abdomen: BS+, Soft, Nontender Extremities: Warm well perfused Neuro: Alert and awake. Results Labs Labs: Laboratory Results - last 24 hr 03/19/21 00:57 COVID-19 ([facility]) Negative COVID-19 Clin Com See Note Assessment and Plan (1) Cellulitis and abscess of face: Status: Acute Plan 36-year-old male with a past medical history of facial cellulitis secondary to ingrown hair; otherwise no significant past medical history presented to the hospital today a chief complaint of left facial pain and swelling. Noted to have left facial cellulitis. Admitted for further management. Left facial cellulitis: CT of the face showed cellulitis but no evidence of drainable abscess. Patient had small open wound with pus drainage. Cultures were sent. Blood cultures were ordered. Noted to have left upper and lower eyelid involvement, no intra-articular involvement. Patient denies any difficulty chewing. Patient received IV vancomycin-will continue Id consult DVT prophylaxis: Subcu heparin Code status: Full code Quality Stroke Does the patient have a stroke diagnosis?: No VTE Prior VTE?: No VTE Risk Level:: Medical - moderate - high VTE Device Contraindication: Treatment Not Indicated VTE Drug Contraindication: N/A - Med Ordered
--- NOTE | 2021-03-19 03:23 | PC.NURSE ---
Pt resting on stretcher in NAD, breathing with ease on RA. Pt aaox4, refused subcut heparin. Risks/benefits explained, pt continues to refuse. Pt stretcher low locked, call delgado within reach
--- NOTE | 2021-03-19 04:31 | PM.EVENT ---
Event Note Date of Service: 03/19/21 Event Note: Against medical advise discharge note: Patient mentioned that he has to take care of his daughter early in the morning and does not want to be stayed in the hospital. Here in the patient was explained in detail at the time of admission in regards the hospital stay. Explained in detail about the current health situation, risks of leaving against medical advice interrupting the treatment. Mentioned in detail about the risks including worsening infection, sepsis, septic shock, septic thrombo embolism, even brain infection and may even lead to . Patient verbalized that he understood the risks and he still wanted to leave against medical advice. Patient is given prescription for clindamycin 600 mg t.i.d. for 10 days. Urged to follow-up with PCP closely. Also explained that IV antibiotics are more effective than oral and patient verbalized that he understood.
[2021-03-19 04:33] VITALS: BP 133/87; PULSE 80; RESP 18; TEMP 36.9; O2SAT 99
--- NOTE | 2021-03-19 04:38 | PC.NURSE ---
Pt rang call sandy requesting RN to bedside to provide update on plan of care. This RN to bedside, pt aaox4, states I'm just curious what's going and what the plan is because I need to be home to help my daughter get ready for school around 6am. This RN explains that this RN was at bedside during Dr Cates's admission assessment when plan for admission to hospital for IV abx was discussed with pt who agreed to plan. Pt expresses nobody explained what that really meant to me. My background isn't in hospitals, so I didn't know what that meant. I thought I got my IV antibiotics and was just waiting to go home. This RN explains that there seems to be a breakdown in communication/understanding of the meaning of admission. Pt agrees, verbalizes that he is frustrated with the lack of education regarding his plan of care that he's rec'd. This RN informs pt that he will likely be admitted for 1-2 days in hospital which means he will stay in [facility] [place] this time, consecutively, to receive IV abx at regularly scheduled intervals. Pt verbalizes understandings, expresses gratitude for clarification, and states he is unable to do so d/t need for childcare. This RN calls Dr Cates to make him aware of pt's request to leave [facility] at this time. Dr Cates states the swelling to his face is progressing rapidly. He needs to stay for his admission. This was explained to him. This RN informs Dr Cates that he must speak to patient directly as this RN has already provide education to pt regarding the plan of care and the importance in adhering to it. Dr Cates requests to speak to pt over the phone. This RN provides phone to patient for Dr Cates to speak directly with patient. When pt disconnects with Dr Cates, pt informs this RN he's coming down to go over AMA paperwork with me and he's sending me home with prescriptions for antibiotics. Dr Cates to bedside, reviews AMA paperwork, this RN witnesses AMA.
== END 2021-03-19 04:55 | disposition other institution (70) | DRG 603 ==
LOC: HO.ED 00:51 → HO.EDOVER 02:32
PROVIDERS: Admitting Provider Hospitalist; Emergency Provider Emergency Medicine Emergency Medical Services; Visit Provider Hospitalist
DX: L03.211 Cellulitis of face (principal); Z88.0 Allergy status to penicillin; Z20.822 Contact with and (suspected) exposure to COVID-19
CPT/HCPCS: 87635; 99284; J3370

== ENCOUNTER 2022-02-28 09:41 | Emergency (ER) | payer OTHER, SELFPAY ==
[2022-02-28 09:58] VITALS: BP 119/83; PULSE 79; RESP 18; TEMP 36.6; O2SAT 98; BMI 23.6
--- NOTE | 2022-02-28 10:26 | ED_ITS ---
HPI - General Adult General Chief complaint: Wound/Laceration Stated complaint: L arm inj Time Seen by Provider: 02/28/22 10:21 History of Present Illness HPI narrative: 37-year-old male who presents to the ER with a draining left biceps abscess secondary to IVDA. Patient states the abscess has been draining and thinks he just needs antibiotics at this time. Patient denies fever chills shortness of breath or other complaints at this time. Patient states he is allergic to amoxicillin and has a history of facial cellulitis in the past. At this time patient has no pain in left arm. Patient has been using warm compresses at home. Patient states he has information on bowel methadone clinic another detox options. Related Data Previous Rx's Medication Instructions Recorded cephalexin 500 mg capsule 500 mg PO Q6H 10 days #40 caps 02/28/22 doxycycline hyclate 100 mg tablet 100 mg PO BID #20 tabs 02/28/22 Allergies Allergy/AdvReac Type Severity Reaction Status Date / Time amoxicillin Allergy Unknown Verified 11/04/20 20:00 Review of Systems Constitutional: Constitutional: Denies chills, Denies fever(s) and Denies headache(s) Eyes: Eyes: Denies loss of vision ENT: Denies headache(s) and Denies sore throat Cardiovascular: Cardiovascular: Denies chest pain and Denies dyspnea Respiratory: Respiratory: Denies dyspnea Gastrointestinal: Gastrointestinal: Denies nausea and Denies vomiting Musculoskeletal: Comments: Patient denies pain in his left arm Integumentary/Breasts: Skin/Breast: Reports other Comments: Draining skin abscess lesion to the left arm Neurologic: Denies headache(s) and Denies loss of vision [facility] Past Medical History Attestation statement: The following information was validated with the patient. Medical History Cellulitis and abscess of face Surgical History H/O: vasectomy S/P appendectomy Physical Exam ED Vital Signs: Vital Signs - 24 hr 02/28/22 09:58 Temperature 98 F Pulse Rate 79 Respiratory Rate 18 Blood Pressure 119/83 Pulse Oximetry 98 Oxygen Delivery Method Room Air BMI result Body Mass Index 23.6 vital signs have been reviewed as normal and appeared to be correct. Blood pressure normal. Heart rate normal. Respiration rate normal. Temperature normal. Oxygen saturation normal. Appearance: Alert. Oriented X3. No acute distress. Head: Normal external exam. Normocephalic. Atraumatic. Eyes: PERRLA. EOMI ENT: Pharynx normal. Uvula midline. Moist mucous membranes. CVS: Heart regular rate and rhythm no murmurs and rubs Respiratory: Breath sounds are clear to auscultation bilaterally. No accessory muscle use noted. Back: Full range of motion noted. Skin: Left bicep patient has draining abscess. Areas of induration erythema no obvious lymphangitis distal pulses sensation intact full range of motion. No large area of fluctuance overall abscess is nontender. Extremities: Full range of motion of upper lower extremities. Neuro: Oriented X 3. No motor deficit. No sensory deficit. Reflexes normal. Const Other: Left bicep draining skin abscess Cellulitis IV drug abuse Medical Decision Making Medical Decision Making MDM Narrative: 37-year-old male with a longstanding history of IV drug use presents with a draining abscess of the left biceps. Patient states he has got a fair amount of pus side of the abscess at this time and does not believe there is any more in there at this time. Patient states he has no pain at this time and has been using warm compresses. Patient denies fever at home. Symptoms consistent with a draining left biceps abscess secondary to IV drug use. Plan to place patient on dual coverage antibiotics at this time. Patient given strict instructions to return if symptoms worsen. Lack of fluctuance will not explore or open at this time Case discussed at length with patient about possible methadone clinic and/or other options for detox patient states he has information will follow-up is is own accord. Discharge Plan Discharge Clinical Impression: Abscess, Cellulitis Patient Disposition: Home, Self-Care Instructions: Cellulitis (ED), Abscess (ED) Additional Instructions: Continue warm compresses 3 to 4 times a day Return if increased fever pain redness or swelling Antibiotics as directed Follow-up with outpatient detox or and/or methadone clinic Prescriptions: New doxycycline hyclate 100 mg tablet 100 mg PO BID Qty: 20 0RF cephalexin 500 mg capsule 500 mg PO Q6H 10 Days Qty: 40 0RF
--- NOTE | 2022-02-28 10:30 | PC.NURSE ---
pt alert and oriented, vss. pt c/o L arm draining abscess, he admits to IVDA. he denies f/chills. no n/v/d.
== END 2022-02-28 10:54 | disposition home or self-care (01) ==
PROVIDERS: Emergency Provider Emergency Medicine Emergency Medical Services
DX: L03.114 Cellulitis of left upper limb (principal)
CPT/HCPCS: 99282; 99283

== ENCOUNTER 2022-05-13 12:47 | Emergency (ER) | payer SELFPAY ==
--- NOTE | ~2022-05-13 | CT_ITS ---
EXAMINATION: CT FACIAL BONES WITH CONTRAST CLINICAL INFORMATION: Periorbital cellulitis and swelling. COMPARISON: CT of the facial bones 03/18/2021, 06/18/2020 TECHNIQUE: Axial images obtained through the facial bones after intravenous injection of 85 mL Omnipaque 350. Coronal and sagittal reformatted images are performed at CT scanner This CT examination was performed using dose optimization techniques as appropriate, variously including the following: *Automated exposure control *Adjustment of mA and/or kV according to patient size (this includes techniques or standardized protocols for targeted exams where dose is matched to indication/reason for exam; i.e. extremities or head) *Use of iterative reconstruction technique DLP: 573 mGy-cm FINDINGS: Generalized edema and soft tissue swelling in the preseptal soft tissues of the left left eyelid and left forehead. No drainable fluid collection. No abscess. The orbital globes and retrobulbar structures are normal. The paranasal sinuses and mastoid air cells are normal. No acute osseous abnormality. No focal bone lesion. Deformity of the medial wall of the left orbit likely from an old fracture. There is degenerative disc height narrowing and endplate spur C6-C7. No evidence of significant lymphadenopathy. The parotid glands and submandibular glands and the partially visualized thyroid are unremarkable. The nasopharynx, pharynx and hypopharynx structures are normal. Normal enhancement of the vasculature. Partially visualized intracranial structures are normal. CT/CT facial bones w IV con IMPRESSION: Edema and soft tissue swelling in the preseptal soft tissues of the left eyelid and left forehead. No drainable fluid collection or abscess.
[2022-05-13 13:13] VITALS: BP 142/79; PULSE 100; RESP 19; TEMP 36.6; O2SAT 98; BMI 23.6
--- NOTE | 2022-05-13 13:13 | ED.EYEPROB ---
HPI - Eye Problem General Chief complaint: General Medical <AURORA Murillo - Last Filed: 05/13/22 13:15> Stated complaint: l eye issue <UARORA Murillo - Last Filed: 05/13/22 13:15> Time Seen by Provider: 05/13/22 16:12 <AURORA Murillo - Last Filed: 05/13/22 13:15> Source: patient <Maryanne Beck NP - Last Filed: 05/13/22 18:02> Mode of arrival: ambulatory <Maryanne Beck NP - Last Filed: 05/13/22 18:02> Limitations: no limitations <Maryanne Beck NP - Last Filed: 05/13/22 18:02> History of Present Illness HPI Narrative: 37-year-old male presents with left eye swelling after popping a pimple on his forehead. He does not report any changes in vision, but cannot open his eyelids because of the swelling. <Maryanne Beck NP - Last Filed: 05/13/22 18:02> Onset (ago): day(s) (1) <Maryanne Beck NP - Last Filed: 05/13/22 18:02> Onset description: gradual <aMryanne Beck NP - Last Filed: 05/13/22 18:02> Duration: progressively worsening <Maryanne Beck NP - Last Filed: 05/13/22 18:02> Location: left eye <Maryanne Beck NP - Last Filed: 05/13/22 18:02> Place: home <Maryanne Beck NP - Last Filed: 05/13/22 18:02> Mechanism: other (Painful popping) <Maryanne Beck NP - Last Filed: 05/13/22 18:02> Severity: moderate <Mayranne Beck NP - Last Filed: 05/13/22 18:02> Severity scale (1-10): 6 <Maryanne Beck NP - Last Filed: 05/13/22 18:02> If Pain, Quality: burning and aching <Maryanne Beck NP - Last Filed: 05/13/22 18:02> Associated symptoms: none <Maryanne Beck NP - Last Filed: 05/13/22 18:02> Related Data Patient tetanus UTD: Yes <Maryanne Beck NP - Last Filed: 05/13/22 18:02> Home medications: Previous Rx's Medication Instructions Recorded cephalexin 500 mg capsule 500 mg PO Q6H 10 days #40 caps 02/28/22 doxycycline hyclate 100 mg tablet 100 mg PO BID #20 tabs 02/28/22 <AURORA Murillo - Last Filed: 05/13/22 13:15> Allergies/adverse reactions: Allergies Allergy/AdvReac Type Severity Reaction Status Date / Time amoxicillin Allergy Unknown Verified 05/13/22 13:12 <AURORA Murillo - Last Filed: 05/13/22 13:15> Review of Systems Review of Systems: Constitutional: No Fever, No Chills ENT/Mouth: No Ear Pain, No Hoarseness, No sore throat Eyes: No Eye Pain, positive left eyelid and facial Swelling, No Redness, No Foreign Body Cardiovascular: No Chest Pain, No SOB Respiratory: No Cough, No Dyspnea Gastrointestinal: No Nausea, No Vomiting, No Diarrhea, No abdominal Pain Genitourinary: No Dysuria, No Hematuria Musculoskeletal: No joint pain, No Myalgias, No Joint Swelling Skin: No Skin lacerations, No rash Neuro: No Weakness, No Numbness, No Paresthesias, No Loss of Consciousness, No Dizziness, No Headache <Maryanne Beck NP - Last Filed: 05/13/22 18:02> Yes all other systems are reviewed and are negative <Maryanne Beck NP - Last Filed: 05/13/22 18:02> [facility] Past Medical History Attestation statement: The following information was validated with the patient. <Maryanne Beck NP - Last Filed: 05/13/22 18:02> Source: old records reviewed <Maryanne Beck NP - Last Filed: 05/13/22 18:02> Medical History: Medical History Cellulitis and abscess of face <AURORA Murillo - Last Filed: 05/13/22 13:15> Surgical History: Surgical History H/O: vasectomy S/P appendectomy <AURORA Murillo - Last Filed: 05/13/22 13:15> Social History Social History: Social History Smoked in Last 30 Days: No Use of substances other than those prescribed or required for medical reasons: No Any prior treatment program specific to substance use: No Advance Directives: No Advance Directives Information Provided: No <AURORA Murillo - Last Filed: 05/13/22 13:15> Physical Exam Vital Signs: Vital Signs: Last Vital Signs Temp 98 F 05/13/22 13:13 Pulse 100 05/13/22 13:13 Resp 05/13/22 13:13 BP 142/79 H 05/13/22 13:13 Pulse Ox 98 05/13/22 13:13 O2 Del Method Room Air 05/13/22 13:13 BMI result Body Mass Index 23.6 <AURORA Murillo - Last Filed: 05/13/22 13:15> Vital Signs: Last Vital Signs Temp 98 F 05/13/22 13:13 Pulse 100 05/13/22 13:13 Resp 05/13/22 13:13 BP 142/79 H 05/13/22 13:13 Pulse Ox 98 05/13/22 13:13 O2 Del Method Room Air 05/13/22 13:13 BMI result Body Mass Index 23.6 <Maryanne Bekc NP - Last Filed: 05/13/22 18:02> Appearance: Alert. Oriented X3. Mild distress. Eyes: Pupils equal, round and reactive to light. Left orbital swelling ENT: Pharynx normal. Neck: Normal inspection. Neck supple. CVS: Normal heart rate and rhythm. Pulses normal. Respiratory: No respiratory distress. Breath sounds normal. Abdomen: Soft and nontender. Skin: Skin warm and dry. Normal skin color. Normal skin turgor. Extremities: No lower extremity edema. Neuro: No motor deficit. No sensory deficit. 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 Swelling progressively worse today, left eye swollen shut. Afebrile and not tachycardic in triage. Plan: CT facial bones w/ con, labs, abx. 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 Swelling progressively worse today, left eye swollen shut. Afebrile and not tachycardic in triage. Plan: CT facial bones w/ con, labs, abx. 16:10 37-year-old male presents with left eye cellulitis and swelling. He has a past medical history of IVDA, history of MRSA with abscess to the left orbit and face. Patient stated that the swelling started today after he popped a pimple. Does not report any pain on extraocular movement, and when he ambrose his eyelid open he does not any changes in vision. He does not wear contact lenses, and states this happens to him often. Has had several episodes of admission in the past for similar presentation, and left against medical advice. Patient is asking how long he is going to stay here, I did informed this patient that he should be admitted for IV antibiotics for periorbital cellulitis, and that he has risk for severe eye infection, loss of vision, sepsis and severe debilitation. I did discuss the plan with this patient in detail, he agrees for IV antibiotics, facial CT, and admission. Labs indicate H&H of 11.2/34.7, consistent with his prior values, ESR of 34, alk-phos of 163, CRP of 5.4. CT facial bones pending. Patient is alert and oriented x4, responding appropriately, and cooperative at this time. 17:35 patient no longer in his room, security searching for this patient. High suspicion for this patient's elopement. RN called [place] [employer] informed them that this patient still has his IV line in. <Maryanne Beck NP - Last Filed: 05/13/22 18:02> Medications Administered Generic Name Dose Route Start Last Admin Trade Name Freq PRN Reason Stop Dose Admin Vancomycin HCl 2,000 mg in 520 mls @ 260 mls/hr 05/13/22 16:20 05/13/22 16:46 Vancomycin/Ns IV 05/13/22 18:19 260 mls/hr ONCE ONE Administration Discontinued Medications Generic Name Dose Route Start Last Admin Trade Name Freq PRN Reason Stop Dose Admin Ibuprofen 600 mg 05/13/22 15:50 05/13/22 16:01 Ibuprofen 600 Mg Tablet PO 05/13/22 15:51 600 mg ONCE ONE Administration Iohexol 100 ml 05/13/22 17:20 05/13/22 17:20 Iohexol 350 Mg/Ml 100 Ml Infus..Btl IV 05/13/22 17:21 85 ml ONCE ONE Administration <AURORA Murillo - Last Filed: 05/13/22 13:15> Medications Administered Generic Name Dose Route Start Last Admin Trade Name Freq PRN Reason Stop Dose Admin Vancomycin HCl 2,000 mg in 520 mls @ 260 mls/hr 05/13/22 16:20 05/13/22 16:46 Vancomycin/Ns IV 05/13/22 18:19 260 mls/hr ONCE ONE Administration Discontinued Medications Generic Name Dose Route Start Last Admin Trade Name Freq PRN Reason Stop Dose Admin Ibuprofen 600 mg 05/13/22 15:50 05/13/22 16:01 Ibuprofen 600 Mg Tablet PO 05/13/22 15:51 600 mg ONCE ONE Administration Iohexol 100 ml 05/13/22 17:20 05/13/22 17:20 Iohexol 350 Mg/Ml 100 Ml Infus..Btl IV 05/13/22 17:21 85 ml ONCE ONE Administration <Maryanne Beck NP - Last Filed: 05/13/22 18:02> Medical Decision Making Differential Diagnosis Differential Diagnoses: The differential diagnosis associated with the presentation includes <Maryanne Beck NP - Last Filed: 05/13/22 18:02> Periorbital cellulitis, facial cellulitis, abscess <Maryanne Beck NP - Last Filed: 05/13/22 18:02> Admission/Observation Consideration of admission/observation: Escalation of care including admission/observation considered <Maryanne Beck NP - Last Filed: 05/13/22 18:02> Will require admission <Maryanne Beck NP - Last Filed: 05/13/22 18:02> Lab Data [facility] Lab Attestation statement: I reviewed the patient's lab results. <Maryanne Beck NP - Last Filed: 05/13/22 18:02> Result Diagrams: 05/13/22 13:32 05/13/22 13:32 <AURORA Murillo - Last Filed: 05/13/22 13:15> Labs: Lab Results 05/13/22 05/13/22 05/13/22 Range/Units 13:32 13:32 13:32 WBC 7.7 (4.8-10.8) X10*3/uL RBC 4.66 (4.60-5.80) X10*6/uL Hgb 11.2 L (14.0-18.0) g/dl Hct 34.7 L (42.0-52.0) % MCV 74.5 L (80.0-98.0) fL MCH 24.0 L (27.0-33.0) pg MCHC 32.3 (31.0-36.0) g/dl RDW 15.6 (11.0-16.0) % Plt Count 243 D (160-400) X10*3/uL MPV 8.4 L (9.4-12.4) fL Immature Gran % (Auto) 0.3 (0.0-0.4) % Neut % (Auto) 80.6 H (45-73) % Lymph % (Auto) 9.3 L (20-40) % Haskell % (Auto) 9.0 (2-11) % Eos % (Auto) 0.5 (0-4) % Baso % (Auto) 0.3 (0-2) % Lymph # (Auto) 0.7 L (1.2-4.9) X10*3/uL Haskell # (Auto) 0.7 (0.1-1.2) X10*3/uL Eos # (Auto) 0.0 (0.0-0.4) X10*3/uL Baso # (Auto) 0.0 (0.0-0.2) X10*3/uL Abs Immat Gran (auto) 0.02 (0.00-0.03) X10*3/uL Absolute Neuts (auto) 6.2 (2.0-8.3) x10*3/uL Absolute Nucleated RBC 0.000 (0.0-0.012) X10*3/uL Nucleated RBC % (auto) 0.0 (0.0-0.2) /100WBC ESR 34 H (0-15) MM/HR Sodium 134 L (135-145) mmol/L Potassium 3.9 (3.3-5.1) mmol/L Chloride 101 (96-108) mmol/L Carbon Dioxide 23 (22-29) mmol/L Anion Gap 14 (12-20) BUN 15 (9-16) mg/dL Creatinine 0.85 (0.5-1.4) mg/dL Estim Creat Clear Calc 122.8 Estimated GFR > 60 Random Glucose 122 H (60-115) mg/dL Lactic Acid (0.5-2.0) mmol/L Calcium 8.9 (8.4-10.2) mg/dL Magnesium 2.1 (1.6-2.6) mg/dL Total Bilirubin 0.5 (0.0-1.0) mg/dL Direct Bilirubin 0.2 (0.0-0.5) mg/dL AST 28 (5-37) U/L ALT 25 (0-40) U/L Alkaline Phosphatase 163 H (39-117) U/L C-Reactive Protein 5.40 H (< or = 0.50) mg/dL Total Protein 7.7 (6.5-8.0) g/dL Albumin 3.6 (3.5-5.0) g/dL 05/13/22 Range/Units 16:38 WBC (4.8-10.8) X10*3/uL RBC (4.60-5.80) X10*6/uL Hgb (14.0-18.0) g/dl Hct (42.0-52.0) % MCV (80.0-98.0) fL MCH (27.0-33.0) pg MCHC (31.0-36.0) g/dl RDW (11.0-16.0) % Plt Count (160-400) X10*3/uL MPV (9.4-12.4) fL Immature Gran % (Auto) (0.0-0.4) % Neut % (Auto) (45-73) % Lymph % (Auto) (20-40) % Haskell % (Auto) (2-11) % Eos % (Auto) (0-4) % Baso % (Auto) (0-2) % Lymph # (Auto) (1.2-4.9) X10*3/uL Haskell # (Auto) (0.1-1.2) X10*3/uL Eos # (Auto) (0.0-0.4) X10*3/uL Baso # (Auto) (0.0-0.2) X10*3/uL Abs Immat Gran (auto) (0.00-0.03) X10*3/uL Absolute Neuts (auto) (2.0-8.3) x10*3/uL Absolute Nucleated RBC (0.0-0.012) X10*3/uL Nucleated RBC % (auto) (0.0-0.2) /100WBC ESR (0-15) MM/HR Sodium (135-145) mmol/L Potassium (3.3-5.1) mmol/L Chloride (96-108) mmol/L Carbon Dioxide (22-29) mmol/L Anion Gap (12-20) BUN (9-16) mg/dL Creatinine (0.5-1.4) mg/dL Estim Creat Clear Calc Estimated GFR Random Glucose (60-115) mg/dL Lactic Acid 1.2 (0.5-2.0) mmol/L Calcium (8.4-10.2) mg/dL Magnesium (1.6-2.6) mg/dL Total Bilirubin (0.0-1.0) mg/dL Direct Bilirubin (0.0-0.5) mg/dL AST (5-37) U/L ALT (0-40) U/L Alkaline Phosphatase (39-117) U/L C-Reactive Protein (< or = 0.50) mg/dL Total Protein (6.5-8.0) g/dL Albumin (3.5-5.0) g/dL <AURORA Murillo - Last Filed: 05/13/22 13:15> Lab Results 05/13/22 05/13/22 05/13/22 Range/Units 13:32 13:32 13:32 WBC 7.7 (4.8-10.8) X10*3/uL RBC 4.66 (4.60-5.80) X10*6/uL Hgb 11.2 L (14.0-18.0) g/dl Hct 34.7 L (42.0-52.0) % MCV 74.5 L (80.0-98.0) fL MCH 24.0 L (27.0-33.0) pg MCHC 32.3 (31.0-36.0) g/dl RDW 15.6 (11.0-16.0) % Plt Count 243 D (160-400) X10*3/uL MPV 8.4 L (9.4-12.4) fL Immature Gran % (Auto) 0.3 (0.0-0.4) % Neut % (Auto) 80.6 H (45-73) % Lymph % (Auto) 9.3 L (20-40) % Haskell % (Auto) 9.0 (2-11) % Eos % (Auto) 0.5 (0-4) % Baso % (Auto) 0.3 (0-2) % Lymph # (Auto) 0.7 L (1.2-4.9) X10*3/uL Haskell # (Auto) 0.7 (0.1-1.2) X10*3/uL Eos # (Auto) 0.0 (0.0-0.4) X10*3/uL Baso # (Auto) 0.0 (0.0-0.2) X10*3/uL Abs Immat Gran (auto) 0.02 (0.00-0.03) X10*3/uL Absolute Neuts (auto) 6.2 (2.0-8.3) x10*3/uL Absolute Nucleated RBC 0.000 (0.0-0.012) X10*3/uL Nucleated RBC % (auto) 0.0 (0.0-0.2) /100WBC ESR 34 H (0-15) MM/HR Sodium 134 L (135-145) mmol/L Potassium 3.9 (3.3-5.1) mmol/L Chloride 101 (96-108) mmol/L Carbon Dioxide 23 (22-29) mmol/L Anion Gap 14 (12-20) BUN 15 (9-16) mg/dL Creatinine 0.85 (0.5-1.4) mg/dL Estim Creat Clear Calc 122.8 Estimated GFR > 60 Random Glucose 122 H (60-115) mg/dL Lactic Acid (0.5-2.0) mmol/L Calcium 8.9 (8.4-10.2) mg/dL Magnesium 2.1 (1.6-2.6) mg/dL Total Bilirubin 0.5 (0.0-1.0) mg/dL Direct Bilirubin 0.2 (0.0-0.5) mg/dL AST 28 (5-37) U/L ALT 25 (0-40) U/L Alkaline Phosphatase 163 H (39-117) U/L C-Reactive Protein 5.40 H (< or = 0.50) mg/dL Total Protein 7.7 (6.5-8.0) g/dL Albumin 3.6 (3.5-5.0) g/dL 05/13/22 Range/Units 16:38 WBC (4.8-10.8) X10*3/uL RBC (4.60-5.80) X10*6/uL Hgb (14.0-18.0) g/dl Hct (42.0-52.0) % MCV (80.0-98.0) fL MCH (27.0-33.0) pg MCHC (31.0-36.0) g/dl RDW (11.0-16.0) % Plt Count (160-400) X10*3/uL MPV (9.4-12.4) fL Immature Gran % (Auto) (0.0-0.4) % Neut % (Auto) (45-73) % Lymph % (Auto) (20-40) % Haskell % (Auto) (2-11) % Eos % (Auto) (0-4) % Baso % (Auto) (0-2) % Lymph # (Auto) (1.2-4.9) X10*3/uL Haskell # (Auto) (0.1-1.2) X10*3/uL Eos # (Auto) (0.0-0.4) X10*3/uL Baso # (Auto) (0.0-0.2) X10*3/uL Abs Immat Gran (auto) (0.00-0.03) X10*3/uL Absolute Neuts (auto) (2.0-8.3) x10*3/uL Absolute Nucleated RBC (0.0-0.012) X10*3/uL Nucleated RBC % (auto) (0.0-0.2) /100WBC ESR (0-15) MM/HR Sodium (135-145) mmol/L Potassium (3.3-5.1) mmol/L Chloride (96-108) mmol/L Carbon Dioxide (22-29) mmol/L Anion Gap (12-20) BUN (9-16) mg/dL Creatinine (0.5-1.4) mg/dL Estim Creat Clear Calc Estimated GFR Random Glucose (60-115) mg/dL Lactic Acid 1.2 (0.5-2.0) mmol/L Calcium (8.4-10.2) mg/dL Magnesium (1.6-2.6) mg/dL Total Bilirubin (0.0-1.0) mg/dL Direct Bilirubin (0.0-0.5) mg/dL AST (5-37) U/L ALT (0-40) U/L Alkaline Phosphatase (39-117) U/L C-Reactive Protein (< or = 0.50) mg/dL Total Protein (6.5-8.0) g/dL Albumin (3.5-5.0) g/dL <PAUL Yadav Last Filed: 05/13/22 18:02> Independent Interpretation I performed an independent interpretation of an: CT Scan <PAUL Yadav Last Filed: 05/13/22 18:02> Radiology Impression Discussion of test interpretation with radiology: I have reviewed the radiologist's reading. <PAUL Yadav Last Filed: 05/13/22 18:02> External Record Review External record reviewed: Inpatient record, Outpatient record, Prior outpatient labs and Prior outpatient radiology <PAUL Yadav Last Filed: 05/13/22 18:02> Prescription Management I considered prescription management with: Antibiotic <Maryanne Beck NP - Last Filed: 05/13/22 18:02> Chronic Conditions Patient?s care impacted by: Other (IVDA) <Maryanne Beck NP - Last Filed: 05/13/22 18:02> Social Determinants Patient?s care significantly limited by Social Determinants of Health including: Other Social Determinant of Health <Maryanne Beck NP - Last Filed: 05/13/22 18:02> Discharge Plan Discharge Clinical Impression: Cellulitis and abscess of face <AURORA Murillo - Last Filed: 05/13/22 13:15> Patient Disposition: Elopement <AURORA Murillo - Last Filed: 05/13/22 13:15> Prescriptions: No Action doxycycline hyclate 100 mg tablet 100 mg PO BID Qty: 20 0RF cephalexin 500 mg capsule 500 mg PO Q6H 10 Days Qty: 40 0RF <AURORA Murillo - Last Filed: 05/13/22 13:15> Discharge Date/Time: 05/13/22 18:01 <AURORA Murillo - Last Filed: 05/13/22 13:15>
[2022-05-13 13:44] LABS: MANUAL DIFF FLAG NO
[2022-05-13 13:46] LABS: Basophils Percent Auto 0.3 % (0-2); Eosinophils Percent Auto 0.5 % (0-4); Hematocrit 34.7 % (42.0-52.0); Hemoglobin 11.2 g/dl (14.0-18.0); Imm Gran Abs Auto 0.02 X10*3/uL (0.00-0.03); Imm Gran Pct Auto 0.3 % (0.0-0.4); Lymphocytes Absolute Auto 0.7 X10*3/uL (1.2-4.9); Lymphocytes Percent Auto 9.3 % (20-40); Mean Corpuscular HGB Conc 32.3 g/dl (31.0-36.0); Mean Corpuscular Volume 74.5 fL (80.0-98.0); Mean Platelet Volume 8.4 fL (9.4-12.4); Monocytes Absolute Auto 0.7 X10*3/uL (0.1-1.2); Neutrophils Absolute Auto 6.2 x10*3/uL (2.0-8.3); Neutrophils Percent Auto 80.6 % (45-73); Platelet Count 243 X10*3/uL (160-400); Red Blood Count 4.66 X10*6/uL (4.60-5.80); Red Cell Distribution Width 15.6 % (11.0-16.0); White Blood Count 7.7 X10*3/uL (4.8-10.8)
[2022-05-13 14:19] LABS: Alanine Aminotransferase 25 U/L (0-40); Albumin Level 3.6 g/dL (3.5-5.0); Alkaline Phosphatase 163 U/L (39-117); Anion Gap 14 (12-20); Aspartate Amino Transferase 28 U/L (5-37); Bilirubin Direct 0.2 mg/dL (0.0-0.5); Bilirubin Total 0.5 mg/dL (0.0-1.0); Blood Urea Nitrogen 15 mg/dL (9-16); Calcium 8.9 mg/dL (8.4-10.2); Carbon Dioxide 23 mmol/L (22-29); Chloride 101 mmol/L (96-108); Creatinine Clr Calc Pharmacy 122.8; Estimated Glomerular Filt Rate > 60; Glucose Random 122 mg/dL (60-115); Magnesium 2.1 mg/dL (1.6-2.6); Potassium 3.9 mmol/L (3.3-5.1); Sodium 134 mmol/L (135-145); Total Protein 7.7 g/dL (6.5-8.0)
[2022-05-13 14:27] LABS: Erythrocyte Sedimentation Rate 34 MM/HR (0-15)
[2022-05-13] MEDS: Ibuprofen 600 MG TABLET PO (16:01)
[2022-05-13 17:06] LABS: Lactic Acid 1.2 mmol/L (0.5-2.0)
[2022-05-13] MEDS: iohexoL 350 MG/ML 100 ML INFUS..BTL IV (17:20)
--- NOTE | 2022-05-13 17:52 | PC.NURSE ---
Patient eloping from ED with IV in place. Provider made aware, and police department called.
== END 2022-05-13 18:01 | disposition left against medical advice (07) ==
PROVIDERS: Nurse Practitioner Family; Physician Assistant; Emergency Provider Emergency Medicine
DX: L03.211 Cellulitis of face (principal); H57.12 Ocular pain, left eye; R51.9 Headache, unspecified; Z79.899 Other long term (current) drug therapy
CPT/HCPCS: 36415; 70487; 80048; 80076; 83605; 83735; 85025; 85652; 86140; 87040; 96374; 99284; J3370; Q9967

== ENCOUNTER 2023-03-15 02:22 | Emergency (ER) | payer MEDICAID, SELFPAY ==
--- NOTE | ~2023-03-15 | CT_ITS ---
EXAMINATION: CT ANGIOGRAM OF THE CHEST WITH AND WITHOUT CONTRAST (CT PULMONARY ANGIOGRAM FOR PE) CLINICAL INFORMATION: Reason for Exam R sided pleuritic pain elevated ddimer COMPARISON: Chest x-ray from just prior TECHNIQUE: Prior to contrast administration, noncontrast localization images were obtained. Subsequently, multidetector volumetric imaging was performed from the thoracic inlet to below the diaphragms following the administration of 65 mL Omnipaque 350 intravenous contrast. No contrast reaction reported Sagittal, coronal, and MIP oblique sagittal reformatted images were obtained on the CT workstation, uploaded to PACS, and reviewed. This CT examination was performed using dose optimization techniques as appropriate, variously including the following: *Automated exposure control *Adjustment of mA and/or kV according to patient size (this includes techniques or standardized protocols for targeted exams where dose is matched to indication/reason for exam; i.e. extremities or head) *Use of iterative reconstruction technique Total exam dose-length product 282 mGy-cm FINDINGS: QUALITY OF STUDY/CONTRAST BOLUS: Satisfactory. PULMONARY ARTERIES: No filling defects are seen in the main, lobar, or segmental pulmonary arteries to suggest the presence of pulmonary emboli. There is inadequate evaluation of some of the distal vasculature bilaterally due to bolus timing, with artifact, and streak artifact especially in the right upper lobe. THORACIC AORTA: No aneurysm. LUNG: Bibasilar subsegmental atelectasis. There is a right minor fissural nodule measuring 4 mm, suggestive of a lymph node. PLEURA: No pleural effusion or pneumothorax. MEDIASTINUM: Visualized thyroid gland is grossly unremarkable. There are enlarged mediastinal lymph nodes in the paratracheal, prevascular, and subcarinal regions measuring up to approximately 1.3 cm short axis dimension. Bilateral hilar lymphadenopathy is also noted. Cardiac size is within normal limits; no pericardial effusion. CORONARY ARTERY CALCIFICATION: None visualized on this study. CHEST WALL/AXILLA: No axillary or internal mammary lymphadenopathy. OSSEOUS STRUCTURES: No acute or suspicious osseous abnormality. UPPER ABDOMEN: Unremarkable. No reflux of contrast into the hepatic veins to suggest elevated right heart pressures. CT/CT angio chest PE protocol IMPRESSION: 1. No pulmonary embolus identified. Of note, there is inadequate evaluation of some of the distal vasculature due to bolus timing and streak artifact. 2. Mediastinal and bilateral hilar lymphadenopathy. This could be inflammatory in nature such as from sarcoidosis, though a malignant etiology could also have a similar appearance. Further workup is recommended. 3. Right minor fissural nodule measuring 4 mm, statistically likely a lymph node. According to the UPDATED 2017 Fleischner Society recommendations, the advised follow-up imaging for solid nodules < 6 mm is: LOW RISK PATIENT: No routine follow-up. HIGH RISK PATIENT: Optional CT at 12 months. VTE: negative.
--- NOTE | ~2023-03-15 | XR_ITS ---
EXAMINATION: XR RIBS, RIGHT CLINICAL INFORMATION: Pain COMPARISON: None available. TECHNIQUE: 3 views of the right ribs were obtained. FINDINGS: Lung volumes are symmetric. There is streaky right basilar opacity favoring subsegmental atelectasis. No additional consolidation bilaterally. No evidence of pneumothorax, pleural effusion, or pulmonary edema. Cardiac size appears within normal limits. Bilateral hilar prominence suggesting lymphadenopathy, better assessed on subsequent CT. No displaced fracture is seen. XR/XR ribs RT min 3V w CXR1V IMPRESSION: No displaced fracture identified. Streaky right basilar opacity favoring atelectasis. Bilateral hilar prominence suggesting lymphadenopathy, better assessed on subsequent CT.
[2023-03-15 02:29] VITALS: BP 135/90; PULSE 110; RESP 16; TEMP 36.3; O2SAT 97; BMI 26.2
--- NOTE | 2023-03-15 02:42 | ECG_ITS ---
Test Reason : CHEST PAIN Blood Pressure : / mmHG Vent. Rate : 108 BPM Atrial Rate : 108 BPM P-R Int : 132 ms QRS Dur : 100 ms QT Int : 318 ms P-R-T Axes : 058 055 027 degrees QTc Int : 426 ms Sinus tachycardia Otherwise normal ECG No previous ECGs available Referred By: Leela Merritt Electronically Signed By:HANNAH GONZALES MD
[2023-03-15 03:01] LABS: MANUAL DIFF FLAG NO
[2023-03-15 03:04] LABS: Basophils Percent Auto 0.3 % (0-2); Eosinophils Absolute Auto 0.1 X10*3/uL (0.0-0.4); Eosinophils Percent Auto 1.4 % (0-4); Hematocrit 36.3 % (42.0-52.0); Hemoglobin 12.2 g/dl (14.0-18.0); Imm Gran Abs Auto 0.01 X10*3/uL (0.00-0.03); Imm Gran Pct Auto 0.2 % (0.0-0.4); Lymphocytes Absolute Auto 0.8 X10*3/uL (1.2-4.9); Lymphocytes Percent Auto 13.1 % (20-40); Mean Corpuscular HGB Conc 33.6 g/dl (31.0-36.0); Mean Corpuscular Hemoglobin 24.8 pg (27.0-33.0); Mean Corpuscular Volume 73.8 fL (80.0-98.0); Mean Platelet Volume 8.6 fL (9.4-12.4); Monocytes Absolute Auto 0.7 X10*3/uL (0.1-1.2); Monocytes Percent Auto 11.9 % (2-11); Neutrophils Absolute Auto 4.2 x10*3/uL (2.0-8.3); Neutrophils Percent Auto 73.1 % (45-73); Platelet Count 275 X10*3/uL (160-400); Red Blood Count 4.92 X10*6/uL (4.60-5.80); Red Cell Distribution Width 14.8 % (11.0-16.0); White Blood Count 5.7 X10*3/uL (4.8-10.8)
[2023-03-15 03:11] LABS: D Dimer High Sensitivity 495 NG/ML
[2023-03-15 03:19] LABS: COVID-19 Test Negative (Negative); IDNOW Serial# 6674DD1D
[2023-03-15 03:20] LABS: Alanine Aminotransferase 36 U/L (0-40); Alkaline Phosphatase 114 U/L (39-117); Anion Gap 17 (12-20); Aspartate Amino Transferase 40 U/L (5-37); Bilirubin Direct 0.2 mg/dL (0.0-0.5); Bilirubin Total 0.6 mg/dL (0.0-1.0); Blood Urea Nitrogen 11 mg/dL (9-16); Calcium 10.3 mg/dL (8.4-10.2); Carbon Dioxide 27 mmol/L (22-29); Chloride 98 mmol/L (96-108); Creatinine Clr Calc Pharmacy 123.1; Estimated Glomerular Filt Rate > 60; Glucose Random 88 mg/dL (60-115); Magnesium 1.7 mg/dL (1.6-2.6); Potassium 4.3 mmol/L (3.3-5.1); Sodium 138 mmol/L (135-145); Total Protein 8.6 g/dL (6.5-8.0)
[2023-03-15 03:22] LABS: Troponin-I High Sensitivity 3.8 ng/L (<3.5-35.0)
[2023-03-15] MEDS: iohexoL 350 MG/ML 100 ML INFUS..BTL 65 ML IV (03:40)
[2023-03-15] MEDS: 0.9 % Sodium Chloride 1,000 ML 999 ML IV (03:42)
--- NOTE | 2023-03-15 03:54 | ED.CHESTPAIN ---
HPI - Chest Pain General Chief Complaint: General Medical Stated Complaint: rt side flank pain Time Seen by Provider: 03/15/23 03:18 Source: patient Mode of arrival: ambulatory Limitations: no limitations History of Present Illness HPI narrative: 38 yo male with PMH of prior appendectomy has had 4 days of R sided pleuritic chest pain he has not hx of ACS or VTE. No fevers no URI symptoms admits to sniffing cocaine but had symptoms beforehand. He does not inject. He has no rash. He has no night sweats or weight loss. MD complaint: chest pain Onset (ago): day(s) (4) Timing of current episode: episodic Prior episodes: Yes Onset: during rest Pain location: right chest Pain radiation: none Severity: moderate Quality: sharp Relieving factors: nothing Exacerbating factors: inspiration Associated symptoms: dyspnea Treatment prior to arrival: none Related Data Previous Rx's Medication Instructions Recorded cephalexin 500 mg capsule 500 mg PO Q6H 10 days #40 caps 02/28/22 doxycycline hyclate 100 mg tablet 100 mg PO BID #20 tabs 02/28/22 prednisone 20 mg tablet 40 mg (2 x 20 mg) PO DAILY 5 days 03/15/23 #10 tabs Allergies Allergy/AdvReac Type Severity Reaction Status Date / Time amoxicillin Allergy Unknown Verified 03/15/23 02:29 Review of Systems Review of Systems: Constitutional : No Weight loss, No Fever, No Chills ENT/Mouth : No sore throat, No Rhinorrhea Eyes: No Eye Pain, No Swelling Cardiovascular : pos Chest Pain, pos SOB, no Dyspnea on Exertion, No Orthopnea, No Edema, No Palpitations Respiratory : No Cough, No Sputum Gastrointestinal : no Nausea, No Vomiting, No Diarrhea, No abdominal Pain, No Hematochezia, No Melena Genitourinary : No Dysuria, No Urinary Frequency Musculoskeletal : No joint pain, No Myalgias, No Joint Swelling Skin : No Skin Lesions, No rash Neuro : No Weakness, No Numbness, No Dizziness, No Headache Psych : No Anxiety/Panic, No Depression All other systems reviewed and are negative [facility] Past Medical History Attestation statement: The following information was validated with the patient. Source: old records reviewed Medical History Cellulitis and abscess of face Surgical History S/P appendectomy H/O: vasectomy Social History Social History Smoked in Last 30 Days: No Use of substances other than those prescribed or required for medical reasons: Yes Substance Use Type: Crack/Cocaine Last Used Substance: Hours (ago) Any prior treatment program specific to substance use: No Advance Directives: No Advance Directives Information Provided: No Physical Exam Vital Signs: Vital Signs: Last Vital Signs Temp 97.4 F 03/15/23 02:29 Pulse 110 H 03/15/23 02:29 Resp 16 03/15/23 02:29 BP 135/90 H 03/15/23 02:29 Pulse Ox 97 03/15/23 02:29 O2 Del Method Room Air 03/15/23 02:29 BMI result Body Mass Index 26.2 Appearance: Alert. Oriented X3. No acute distress. Eyes: Pupils equal, round and reactive to light. ENT: Pharynx normal. Neck: Normal inspection. Neck supple. CVS: Normal heart rate and rhythm. Pulses normal. Chest: ttp along R ribs but no rash noted Respiratory: No respiratory distress. Breath sounds normal. Abdomen: Soft and nontender. Skin: Skin warm and dry. Normal skin color. Normal skin turgor. Extremities: No lower extremity edema. No calf ttp Neuro: Oriented X 3. No motor deficit. No sensory deficit. Medications Administered Generic Name Dose Route Start Last Admin Trade Name Freq PRN Reason Stop Dose Admin Sodium Chloride 1,000 mls @ 999 mls/hr 03/15/23 03:30 03/15/23 03:42 Ns IV 03/15/23 04:30 999 mls/hr .Q1H1M PADILLA Administration Discontinued Medications Generic Name Dose Route Start Last Admin Trade Name Freq PRN Reason Stop Dose Admin Iohexol 65 ml 03/15/23 03:39 03/15/23 03:40 Iohexol 350 Mg/Ml 100 Ml Infus..Btl IV 03/15/23 03:40 65 ml ONCE ONE Administration Medical Decision Making Medical Decision Making MDM Narrative: 38 yo male with no sig PMH just got out of skilled nursing no IVDA did do cocaine tonight that accounts for his tachycardia he presents with pleuritic R sided chest pain and some dyspnea x 4 days but no fevers, coughs, injury at this time labs, ddimer, trop and EKG, IVF he appears dry. No night sweats, weight loss, hemoptysis. Differential Diagnosis Differential Diagnoses: The differential diagnosis associated with the presentation includes pneumonia, VTE, cocaine induced Admission/Observation Consideration of admission/observation: Escalation of care including admission/observation considered labs stable, VS improved feels better Lab Data MDM Lab Attestation statement: I reviewed the patient's lab results. 03/15/23 02:56 03/15/23 02:56 Labs: Lab Results 03/15/23 Range/Units 02:56 WBC 5.7 (4.8-10.8) X10*3/uL RBC 4.92 (4.60-5.80) X10*6/uL Hgb 12.2 L (14.0-18.0) g/dl Hct 36.3 L (42.0-52.0) % MCV 73.8 L (80.0-98.0) fL MCH 24.8 L (27.0-33.0) pg MCHC 33.6 (31.0-36.0) g/dl RDW 14.8 (11.0-16.0) % Plt Count 275 (160-400) X10*3/uL MPV 8.6 L (9.4-12.4) fL Immature Gran % (Auto) 0.2 (0.0-0.4) % Neut % (Auto) 73.1 H (45-73) % Lymph % (Auto) 13.1 L (20-40) % [place] % (Auto) 11.9 H (2-11) % Eos % (Auto) 1.4 (0-4) % Baso % (Auto) 0.3 (0-2) % Lymph # (Auto) 0.8 L (1.2-4.9) X10*3/uL [place] # (Auto) 0.7 (0.1-1.2) X10*3/uL Eos # (Auto) 0.1 (0.0-0.4) X10*3/uL Baso # (Auto) 0.0 (0.0-0.2) X10*3/uL Abs Immat Gran (auto) 0.01 (0.00-0.03) X10*3/uL Absolute Neuts (auto) 4.2 (2.0-8.3) x10*3/uL Absolute Nucleated RBC 0.000 (0.0-0.012) X10*3/uL Nucleated RBC % (auto) 0.0 (0.0-0.2) /100WBC D-Dimer High Sensitivty 495 NG/ML Sodium 138 (135-145) mmol/L Potassium 4.3 (3.3-5.1) mmol/L Chloride 98 (96-108) mmol/L Carbon Dioxide 27 (22-29) mmol/L Anion Gap 17 (12-20) BUN 11 (9-16) mg/dL Creatinine 0.84 (0.5-1.4) mg/dL Estim Creat Clear Calc 123.1 Estimated GFR > 60 Random Glucose 88 (60-115) mg/dL Calcium 10.3 H D (8.4-10.2) mg/dL Magnesium 1.7 (1.6-2.6) mg/dL Total Bilirubin 0.6 (0.0-1.0) mg/dL Direct Bilirubin 0.2 (0.0-0.5) mg/dL AST 40 H (5-37) U/L ALT 36 (0-40) U/L Alkaline Phosphatase 114 (39-117) U/L Troponin I High Sens 3.8 (<3.5-35.0) ng/L Total Protein 8.6 H (6.5-8.0) g/dL Albumin 4.0 (3.5-5.0) g/dL COVID-19 ([facility]OLO) Negative (Negative) COVID-19 Clin Com See Note Independent Interpretation I performed an independent interpretation of an: EKG, Plain X-Ray (no PTX) and CT Scan (no VTE) Interpretation: Rate: 108 Rhythm: sinus tach [place]: normal Normal P waves. Normal KAELY[place]. Normal QRS complex. ST T wave : normal no NOE qTC: 426 prior studies: The study has been interpreted contemporaneously by me. . Radiology Impression Discussion of test interpretation with radiology: I have reviewed the radiologist's reading. Prescription Management I considered prescription management with: Other Discharge Plan Discharge Clinical Impression: Lymphadenopathy, mediastinal, Acute dehydration, Atypical chest pain, Cocaine use Patient Disposition: Home, Self-Care Instructions: Chest Pain (ED), Dehydration (ED), Lymphadenopathy (ED), Cocaine Abuse (ED) Additional Instructions: stop using cocaine it can cause heart attacks and strokes. your CT scan showed bilateral swollen lymph nodes a doctor needs to follow up with this please follow up at [facility] to monitor this. Please call on Friday. Will put you on course of steroids to see if this improves symptoms. Return for fevers, night sweats, weight loss. [address] [phone] call to schedule appointment Prescriptions: New prednisone 20 mg tablet 40 mg PO DAILY 5 Days Qty: 10 0RF No Action doxycycline hyclate 100 mg tablet 100 mg PO BID Qty: 20 0RF cephalexin 500 mg capsule 500 mg PO Q6H 10 Days Qty: 40 0RF
[2023-03-15 04:28] VITALS: BP 123/82; PULSE 102; RESP 14; TEMP 36.7; O2SAT 98
== END 2023-03-15 04:29 | disposition home or self-care (01) ==
PROVIDERS: Emergency Provider Emergency Medicine
DX: R59.1 Generalized enlarged lymph nodes (principal); E86.0 Dehydration; R07.89 Other chest pain; F14.10 Cocaine abuse, uncomplicated; Z11.52 Encounter for screening for COVID-19
CPT/HCPCS: 71101; 71275; 80048; 80076; 83735; 84484; 85025; 85379; 87635; 93005; 99284; 99285; Q9967

== ENCOUNTER → 2023-03-15 02:42 | Outpatient (BNV) | payer MEDICAID, SELFPAY | PROVIDERS: Emergency Provider Emergency Medicine; Visit Provider Internal Medicine Cardiovascular Disease | DX: R00.0 Tachycardia, unspecified (principal) | CPT/HCPCS: 93010 ==

== ENCOUNTER 2023-11-06 05:57 | Emergency (ER) | payer MEDICAID, SELFPAY ==
--- NOTE | 2023-11-06 06:01 | ED.OVERDOSE ---
HPI - Overdose General Chief Complaint: Overdose Stated Complaint: OD 8mg Narcan Time Seen by Provider: 11/06/23 05:59 Source: EMS Mode of arrival: EMS Limitations: no limitations History of Present Illness ED Provider: Dr. Metz HPI Narrative: [place] 8mg intranasal narcan. He presents vomiting in withdrawal. Related Data Previous Rx's ?Medication ?Instructions ?Recorded cephalexin 500 mg capsule 500 mg PO Q6H 10 days #40 caps 02/28/22 doxycycline hyclate 100 mg tablet 100 mg PO BID #20 tabs 02/28/22 prednisone 20 mg tablet 40 mg (2 x 20 mg) PO DAILY 5 days 03/15/23 #10 tabs Allergies Allergy/AdvReac Type Severity Reaction Status Date / Time amoxicillin Allergy Unknown Verified 11/06/23 06:30 Review of Systems Review of Systems: Yes all other systems are reviewed and are negative Neurologic: Denies Sensory deficit (Neuro) [facility] Past Medical History Medical History Cellulitis and abscess of face Surgical History S/P appendectomy H/O: vasectomy Social History Social History Substance Use Type: Crack/Cocaine Advance Directives: No Advance Directives Information Provided: No Physical Exam Vital Signs: Vital Signs: Last Vital Signs Pulse 53 11/06/23 06:25 Resp 22 H 11/06/23 06:25 Pulse Ox 95 11/06/23 06:25 O2 Del Method Room Air 11/06/23 06:25 BMI result Body Mass Index 28.8 Const: Other: agitated vomiting Nutritional Appearance: average body habitus Orientation/consciousness: oriented to person Limitations: no limitations HEENT: Head: Yes normal to inspection Ears: external ears normal General nose exam: Normal external nose present Mouth: Normal oral and palatal mucosa present and oropharynx normal Throat: Yes posterior oropharynx normal Eyes: General: appearance normal, both eyes and all related structures Neck: Other: supple Neck: Yes normal visual inspection Chest: Chest palpation & inspection: normal inspection of the chest Resp: Auscultation: clear to auscultation bilaterally Cardio: Jugular venous distension: no JVD Rate: regular rate Rhythm: regular rhythm Heart sounds: S1 normal heart sound present and S2 normal heart sound present GI: Inspection: Yes normal to inspection Palpation (GI): Soft to palpation, nontender and No hepatosplenomegaly present Auscultation: normal bowel sounds : General: Yes no CVA tenderness Back/Spine/Pelvis: Back: no CVA tenderness Skin: General skin exam: no rashes or lesions noted Neuro: General: oriented to person Cranial nerves: Yes CN's II-XII intact bilaterally Motor exam (neuro): 5/5 motor strength present throughout Sensory Exam: No Sensory deficit (Neuro) Extrem: General: Yes normal to inspection Psych: Other: oriented to person, vomiting Course Reevaluation(s) Reevaluation #1: Patient awake after narcan will have care team evaluate and make SUDE recommendations Time: 07:30 Medical Decision Making Differential Diagnosis Differential Diagnoses: The differential diagnosis associated with the presentation includes (drug overdose, opiate abuse, opiate withdrawal) Admission/Observation Consideration of admission/observation: Escalation of care including admission/observation considered (upon arrival patient considered for admission) Consult Healthcare Provider Management of the patient was discussed with: Behavioral Health Provider Independent Historian Clinical information obtained from an independent historian. History obtained from or confirmed by: EMS Social Determinants Patient?s care significantly limited by Social Determinants of Health including: Alcoholism and drug addiction in family Discharge Plan Discharge Clinical Impression: Drug overdose, Opiate withdrawal Patient Disposition: Still a Patient Prescriptions: No Action doxycycline hyclate 100 mg tablet 100 mg PO BID Qty: 20 0RF cephalexin 500 mg capsule 500 mg PO Q6H 10 Days Qty: 40 0RF prednisone 20 mg tablet 40 mg PO DAILY 5 Days Qty: 10 0RF Print Language: [place]
--- NOTE | 2023-11-06 06:23 | MHC.EDTECH ---
Patient uncooperative, refused vital signs, RN and tech were able to put the O2 probe on finger
[2023-11-06 06:25] VITALS: PULSE 53; RESP 22; O2SAT 95; BMI 28.8
--- NOTE | 2023-11-06 06:31 | PC.NURSE ---
Pt was found by PD at [place], unresponsive. PD gave 8mg of nasal narcan. Pt was uncooperative with EMS, continues to be uncooperative. Pt changed over by security and staff. Belongings in [place]. Not able to obtain BP and temp at this time.
--- NOTE | 2023-11-06 07:12 | MHC.EDTECH ---
[facility] IN [place]
--- NOTE | 2023-11-06 09:56 | HO.SUDE ---
Pt declined SUDE.
[2023-11-06 10:11] VITALS: BP 0/0; PULSE 0; RESP 0; TEMP -17.7; TEMP 0
[2023-11-06] MEDS: Naloxone HCl Nasal TAKE HOME 4 MG SPRAY 8 MG NOSTRILALT (10:12)
== END 2023-11-06 10:11 | disposition home or self-care (01) ==
PROVIDERS: Emergency Provider Emergency Medicine
DX: T40.1X1A Poisoning by heroin, accidental (unintentional), initial encounter (principal); Y92.89 Other specified places as the place of occurrence of the external cause; F11.13 Opioid abuse with withdrawal; Z79.899 Other long term (current) drug therapy; F14.10 Cocaine abuse, uncomplicated
CPT/HCPCS: 99284; 99285

== ENCOUNTER 2024-01-19 17:38 | Outpatient (REF) | payer MEDICAID, SELFPAY | END 2024-01-19 17:39 | disposition home or self-care (01) | LOC: HO.HHCLNP 17:38 | PROVIDERS: Visit Provider Family Medicine | DX: F11.20 Opioid dependence, uncomplicated (principal) | CPT/HCPCS: 80307 ==

== ENCOUNTER 2024-08-13 02:09 | Emergency (ER) | payer MEDICAID, SELFPAY ==
[2024-08-13 02:15] VITALS: BP 117/76; PULSE 100; O2SAT 98; BMI 27.4
[2024-08-13 02:17] VITALS: BP 131/78; PULSE 96; RESP 16; TEMP 36.5; O2SAT 98
--- NOTE | 2024-08-13 02:22 | ED_ITS ---
HPI - Overdose General Chief Complaint: Overdose Stated Complaint: OVERDOSE Time Seen by Provider: 08/13/24 02:15 Source: patient and EMS Mode of arrival: EMS Limitations: no limitations History of Present Illness ED Provider: Dr. Cydney King HPI Narrative: Patient comes to the emergency room via ambulance after an accidental overdose. According to the patient, he admits that he was using heroin in a local restaurant ( [employer]). patient states that he does not remember what happened. According to EMS, seems that the patient was found by a bystander unresponsive in the bathroom, PD was called, they gave to the patient intranasal Narcan and patient woke up. Patient initial was a bit confused. Here in the emergency room patient states that this was an accident, denies SI or HI. Related Data Previous Rx's ?Medication ?Instructions ?Recorded cephalexin 500 mg capsule 500 mg PO Q6H 10 days #40 ca ps 02/28/22 doxycycline hyclate 100 mg tablet 100 mg PO BID #20 ta bs 02/28/22 prednisone 20 mg tablet 40 mg (2 x 20 mg) PO DAILY 5 days 03/15/23 #10 tabs Allergies Allergy/AdvReac Type Severity Reaction Status Date / Time amoxicillin Allergy Unknown Verified 08/13/24 02:19 Review of Systems Review of Systems: Constitutional : No Weight loss, No Fever, No Chills, No Night Sweats, No Fatigue, No Malaise ENT/Mouth : No Hearing loss, No Ear Pain, No Nasal Congestion, No Sinus Pain, No Hoarseness, No sore throat, No Rhinorrhea, No Swallowing Difficulty Eyes: No Eye Pain, No Swelling, No Redness, No Foreign Body, No Discharge, No Vision Changes Cardiovascular : No Chest Pain, No SOB, No Dyspnea on Exertion, No Orthopnea, No Edema, No Palpitations Respiratory : No Cough, No Sputum, No Wheezing, No Smoke Exposure, No Dyspnea Gastrointestinal : No Nausea, No Vomiting, No Diarrhea, No Constipation, No abdominal Pain, No Hematochezia, No Melena Genitourinary : no irregular bleeding, No Dysuria, No Urinary Frequency, No Hematuria, No Urinary Incontinence, No Urgency, No Flank Pain, No Urinary Flow Changes, No Hesitancy Musculoskeletal : No joint pain, No Myalgias, No Joint Swelling Skin : No Skin Lesions, No rash Neuro : No Weakness, No Numbness, No Paresthesias, No Loss of Consciousness, No Dizziness, No Headache Psych : No Anxiety/Panic, No Depression, No SI/HI/AH/VH, Admits to heroin use and overdose Heme/Lymph: No Bruising, No Bleeding,No Lymphadenopathy Endocrine : No Polyuria, No Polydipsia, No Temperature Intolerance PMF Past Medical History Medical History Cellulitis and abscess of face Surgical History S/P appendectomy H/O: vasectomy Social History Social History Unable to assess alcohol history related to: Refusing to respond Alcohol intake: current Alcohol intake frequency: other Substance Use Type: Heroin and Opiates Physical Exam Vital Signs: Vital Signs: Last Vital Signs Temp 97.7 F 08/13/24 02:17 Pulse 96 08/13/24 02:17 Resp 16 08/13/24 02:17 BP 131/78 08/13/24 02:17 Pulse Ox 98 08/13/24 02:17 O2 Del Method Room Air 08/13/24 02:17 BMI result Body Mass Index 27.4 Const: Other: Appearance: Alert. Oriented X3. No acute distress. Eyes: Pupils equal, round and reactive to light. ENT: Pharynx normal. Neck: Normal inspection. Neck supple. No lymph nodes noted. No crepitus CVS: Normal heart rate and rhythm. Pulses normal. Normal S1 and S2 Respiratory: No respiratory distress. Breath sounds normal. No Wheezing. No rales Abdomen: Soft and nontender. No rigidity. No distention. Skin: Skin warm and dry. Normal skin color. Normal skin turgor. Extremities: No lower extremity edema. No Lacerations. No Rash Neuro: Oriented X 3. No motor deficit. No sensory deficit. Moving all extremities. No slurred speech. CN 2 through 12 grossly intact Psych: calm, cooperative, normal affect Course Course Course Narrative: here in the emergency room, patient has no complaints other than admitting that he had an overdose, denies any headache, neck pain, no injuries. Patient admits that he used heroin, denies suicidal or homicidal ideation. 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 when he gets ready to be discharged patient is under physician observation, started at 02:25 Medical Decision Making Differential Diagnosis Differential Diagnoses: The differential diagnosis associated with the presentation includes ( polysubstance abuse, alcohol abuse) Admission/Observation Consideration of admission/observation: Escalation of care including admission/observation considered ( patient is under physician observation, likely to be discharged when fully awake and alert) Critical Care Time Critical Care Time Critical Care Time: Yes Total Critical Care Time: 35 Attestation: I have personally provided critical care time. Time includes review of lab data, radiology results, discussion with consultants, and monitoring for potential decompensation. Intervention performed as documented. Discharge Plan Discharge Clinical Impression: Drug overdose Instructions: Adult Overdose (ED) Additional Instructions: Overdose You were seen in our Emergency Department for an overdose today. You received narcan in order to reverse the effects of overdose. Narcan only lasts about 45 min to 1 hour in the system. You may have been given narcan to take home with you today, please keep it near you if you are going to use again, so others can use it if needed.? The number one risk for fatal overdose is using alone? [employer] is a / hotline where you can be on the phone with someone while you use, and they can call for help if they suspect an overdose: [phone] Things to look out for when you leave include severe vomiting or diarrhea, headaches, muscle cramps, fever, coughing, chest pain, or if you feel so short of breath you cannot walk to the bathroom. Please seek care and return any time for worsening symptoms.? You may have been provided with safer injection?items, please take time to take care of YOU and your health. Use new supplies whenever possible to lessen the chances of infections and other illnesses.? If you need more supplies, please go [facility],? [address] [place] [address] OR you can call or text to coordinate delivery of safer supplies. If you decide you want to stop or cut down on how much you?re using, please call the numbers on the list provided to you or you can come to our outpatient Addiction Treatment office [facility] (M-F 9am-5p) [address], [address] [place], [place]. [phone] Prescriptions: No Action doxycycline hyclate 100 mg tablet 100 mg PO BID Qty: 20 0RF cephalexin 500 mg capsule 500 mg PO Q6H 10 Days Qty: 40 0RF prednisone 20 mg tablet 40 mg PO DAILY 5 Days Qty: 10 0RF Print Language: Upper Sorbian
[2024-08-13 05:08] VITALS: BP 107/65; PULSE 64; RESP 16; O2SAT 99
[2024-08-13] MEDS: Naloxone HCl Nasal TAKE HOME 4 MG SPRAY 8 MG NOSTRILALT (06:09)
[2024-08-13 07:38] VITALS: BP 116/65; PULSE 64; RESP 16; TEMP 36.6; O2SAT 99
--- NOTE | 2024-08-13 09:37 | HO.SUDE ---
Attempted to meet with pt. in ED 17 following recent OD on 08/13/24 at approx 2AM where he was found in a public restroom, Narcanx1 and BIBA to ED. Pt resting comfortably in bed and did awaken easily to voice. Pt presenting as slightly agitated and wondering when can I leave . I offered support and resources and this was declined. Due to pt's declination I was unable to complete a SUDE. Pt did allow me to leave a folder of resources and harm reduction information. T/W available as needed.
--- NOTE | 2024-08-13 10:52 | ED.OVERDOSE ---
HPI - Overdose General Chief Complaint: Overdose Stated Complaint: OVERDOSE Time Seen by Provider: 08/13/24 02:15 Source: patient and EMS Mode of arrival: EMS Limitations: no limitations History of Present Illness HPI Narrative: Patient was found and then he has bathroom passed out. Got Narcan from PD. Related Data Previous Rx's ?Medication ?Instructions ?Recorded cephalexin 500 mg capsule 500 mg PO Q6H 10 days #40 caps 02/28/22 doxycycline hyclate 100 mg tablet 100 mg PO BID #20 tabs 02/28/22 prednisone 20 mg tablet 40 mg (2 x 20 mg) PO DAILY 5 days 03/15/23 #10 tabs Allergies Allergy/AdvReac Type Severity Reaction Status Date / Time amoxicillin Allergy Unknown Verified 08/13/24 02:19 Review of Systems Review of Systems: Unable to obtain [facility] Past Medical History Medical History Cellulitis and abscess of face Surgical History S/P appendectomy H/O: vasectomy Social History Social History Unable to assess alcohol history related to: Refusing to respond Alcohol intake: current Alcohol intake frequency: other Smoked in Last 30 Days: Yes Use of substances other than those prescribed or required for medical reasons: Yes Substance Use Type: Heroin and Opiates Substance Use Frequency: Daily Last Used Substance: Just Prior to Admission Advance Directives: No Physical Exam Vital Signs: Vital Signs: Last Vital Signs Temp 97.9 F 08/13/24 07:38 Pulse 64 08/13/24 07:38 Resp 16 08/13/24 07:38 BP 116/65 08/13/24 07:38 Pulse Ox 99 08/13/24 07:38 O2 Del Method Room Air 08/13/24 07:38 BMI result Body Mass Index 27.4 Exam done at 10:55 Appearance: Alert. No acute distress. Eyes: Pupils equal, round and reactive to light. ENT: Pharynx normal. Neck: Normal inspection. Neck supple. No lymph nodes noted. No crepitus CVS: Normal heart rate and rhythm. Pulses normal. Normal S1 and S2 Respiratory: No respiratory distress. Breath sounds normal. No Wheezing. No rales Abdomen: Soft and nontender. No rigidity. No distention. good BS x4 Skin: Skin warm and dry. Normal skin color. Normal skin turgor. Extremities: No lower extremity edema. Neurovascular intact to all extremities. No Lacerations. No Rash Neuro: . No motor deficit. No sensory deficit. Moving all extermities. No slurred speech Medications Administered Discontinued Medications Generic Name Dose Route Start Last Admin Trade Name Zhou PRN Reason Stop Dose Admin Naloxone HCl 8 mg 08/13/24 02:22 08/13/24 06:09 Naloxone Hcl Nasal Take Home 4 Mg [place] NOSTRILALT 08/13/24 02:23 8 mg ONCE ONE Administration Medical Decision Making Medical Decision Making [facility] Narrative: Took over the patient's case at the change of shift at 07:00. Patient is now awake alert oriented. In no acute distress. Not suicidal not homicidal. Will discharge home. Patient did not want detox at this time. Differential Diagnosis Differential Diagnoses: The differential diagnosis associated with the presentation includes Polysubstance abuse heroin abuse Lab Data [facility] Lab Attestation statement: I reviewed the patient's lab results. Chronic Conditions Polysubstance abuse Social Determinants Patient?s care significantly limited by Social Determinants of Health including: Alcoholism and drug addiction in family and Problems related to primary support group Discharge Plan Discharge Clinical Impression: Drug overdose Patient Disposition: Home, Self-Care Instructions: Adult Overdose (ED) Additional Instructions: Overdose You were seen in our Emergency Department for an overdose today. You received narcan in order to reverse the effects of overdose. Narcan only lasts about 45 min to 1 hour in the system. You may have been given narcan to take home with you today, please keep it near you if you are going to use again, so others can use it if needed.? The number one risk for fatal overdose is using alone? Safe [employer] is a 24/ hotline where you can be on the phone with someone while you use, and they can call for help if they suspect an overdose: [phone] Things to look out for when you leave include severe vomiting or diarrhea, headaches, muscle cramps, fever, coughing, chest pain, or if you feel so short of breath you cannot walk to the bathroom. Please seek care and return any time for worsening symptoms.? You may have been provided with safer injection?items, please take time to take care of YOU and your health. Use new supplies whenever possible to lessen the chances of infections and other illnesses.? If you need more supplies, please go [facility],? [address] [place], [place] OR you can call or text to coordinate delivery of safer supplies. If you decide you want to stop or cut down on how much you?re using, please call the numbers on the list provided to you or you can come to our outpatient Addiction Treatment office [facility] (M-F 9am-5p) [address] [place] [address], [address] [place], [place]. [phone] Prescriptions: No Action doxycycline hyclate 100 mg tablet 100 mg PO BID Qty: 20 0RF cephalexin 500 mg capsule 500 mg PO Q6H 10 Days Qty: 40 0RF prednisone 20 mg tablet 40 mg PO DAILY 5 Days Qty: 10 0RF Referrals: [facility] [Primary Care Provider, Medical] - 1 week Print Language: Amharic
[2024-08-13 11:08] VITALS: BP 116/65; PULSE 64; RESP 16; TEMP 36.6; O2SAT 99
== END 2024-08-13 11:25 | disposition home or self-care (01) ==
PROVIDERS: Emergency Provider Emergency Medicine
DX: T50.901A Poisoning by unspecified drugs, medicaments and biological substances, accidental (unintentional), initial encounter (principal); Y92.9 Unspecified place or not applicable; R40.4 Transient alteration of awareness; Z79.899 Other long term (current) drug therapy
CPT/HCPCS: 99284

== ENCOUNTER 2024-08-20 12:01 | Emergency (ER) | payer MEDICAID, SELFPAY ==
[2024-08-20 12:09] VITALS: BP 121/73; BP 126/60; PULSE 86; PULSE 94; RESP 16; TEMP 36.7; O2SAT 95; O2SAT 96; BMI 28.3
--- OUTSIDE RECORDS SUMMARY | 2024-08-20 12:33 | XMS_ITS | Clinical Summary ---
Author Organization [employer] Address [address] [place] [address] Care Team Providers Care Scout Sniper Name Role Phone Unavailable Primary Care Provider Unavailabl e Allergies No known active allergies Medications * This document contains information received from the source organization and may not represent a complete record from that organization. Buprenorphine HCl-Naloxone HCl (Suboxone) 8-2 MG SL filmIndication s:Uncomplicate d opioid dependence (CMS/HCC) Place 3 Film under the tongue Once per day for 7 days. Do not start before August 16, 2024. 21 Film 5 025 Active Buprenorphine HCl-Naloxone HCl (Suboxone) 8-2 MG SL filmIndication s:Uncomplicate d opioid dependence (CMS/HCC) Place 3 Film under the tongue Once per day for 7 days. 21 Film 5 025 Discontinued(Re order (will not trigger notification to Pharmacy)) Buprenorphine HCl-Naloxone HCl (Suboxone) 8-2 MG SL filmIndication s:Uncomplicate d opioid dependence (CMS/HCC) Place 3 Film under the tongue Once per day for 12 days. 36 Film 5 025 Discontinued(Re order (will not trigger notification to Pharmacy)) Active Problems Problem Noted Date Diagnosed Date Opioid dependence 06/30/2024 Assessment & Plan (06/30/2024 11:57 AM EDT): - stage of change: Action / early remission - Utox review: pos bup only on 06/30/24 - Overdose risk: intermediate - high risk, decreased tolerance, mixed use, ADHD, anxiety, depression - Continue current recovery support - Continue current recovery effort - Reviewed harm reduction and overdose prevention ADHD 06/30/2024 Assessment & Plan (06/30/2024 11:46 AM EDT): - continue practicing meditation Anxiety and depression 06/30/2024 Assessment & Plan (06/30/2024 11:46 AM EDT): - he states he is interested in seeing behavioral health service provider - he is not interested in pharmacological treatment - continue practicing meditation Encounters Date Type Department Care Team Description 08/05/2024 10:00 AM EDT Clinical Support [facility] [address] [place] [id number] Елена Dawson RN Opioid type dependence, continuous ([facility]/HCC) (Primary Dx) 08/05/2024 Refill [facility] [address] [place] [phone] Елена Dawson RN Uncomplicated opioid dependence ([facility]/HCC) 08/05/2024 Patient Outreach [facility] [address] [place] [phone] Davi Richmond Recovery Supports 08/05/2024 Refill [facility] [address] [place] [phone] Елена Dawson RN Uncomplicated opioid dependence ([facility]/HCC) 08/05/2024 Travel 07/16/2024 Telephone [facility] [address] [place] [phone] Елена Dawson RN 07/02/2024 Refill [facility] [address] [place] [phone] Елена Dawson RN Uncomplicated opioid dependence ([facility]/HCC) 06/30/2024 11:15 AM EDT Office Visit [facility] [address] [place] [phone] Leslie Blanca MD Uncomplicated opioid dependence ([facility]/HCC) (Primary Dx); Routine screening for STI (sexually transmitted infection); Immunity status testing; Encounter for screening for respiratory tuberculosis; Attention deficit hyperactivity disorder (ADHD), unspecified ADHD type; Anxiety and depression 06/30/2024 10:00 AM EDT Office Visit [facility] [address] [place] [phone] Елена Dawson, RN Uncomplicated opioid dependence ([facility]/HCC) 06/30/[address] [phone] Leo Alarcon MD New patient appt. 06/30/[address] [address] Елена Dawson RN Uncomplicated opioid dependence (CMS/HCC) 06/30/2024 Travel from Last 3 Months Immunizations Immunization Administration Dates Next Due Pfizer Covid-19 Vaccine 12+ 03/27/2022 Social History Tobacco Use Types Packs/Day Years Used Date Smoking Tobacco: Never Assessed Sex and Gender Information Value Date Recorded Sex Assigned at Male 03/27/2022 2:52 PM EST Legal Sex Male 2:47 PM EST Gender Identity Male 03/27/2022 2:52 PM EST Sexual Orientation Straight 03/27/2022 2: 52 PM EST Last Filed Vital Signs Vital Sign Reading Time Taken Comments Blood Pressure 141/86 08/29/2023 10:26 AM EDT Pulse 79 08/29/2023 10:26 AM EDT Temperature 36.8 C (98.2 F) 08/29/2023 10:26 AM EDT Respiratory Rate 20 08/29/2023 10:26 AM EDT Oxygen Saturation - - Inhaled Oxygen Concentration - - Weight 89.4 kg (197 lb 0.2 oz) 08/29/2023 10:26 AM EDT Height - - Body Mass Index - - Plan of Treatment Upcoming Encounters Date Type Department Care Team (Late st Contact Info) Description 08/23/2024 3:00 PM EDT Clinical Support [address] [address] Елена Dawson RN 08/30/2024 1:45 PM EDT Office Visit [address] [phone] Kendrick Ricardo MD [address] [place] [phone] 11/02/2024 10:15 AM EDT Office Visit [address] [address] Janet Graves MD [address] [place] [address] Health Maintenance Due Date Last Done Comments Depression Screening 1985 HIV Screening 1985 Lipid Panel 1985 SDOH Screening 1985 Disability Screening 1985 Alcohol/Substance Use Screening 1997 Tobacco Screening 1997 Family Planning (PISQ) 02/29/2000 HPV Vaccines (1 - Male 3-dos e series) 02/29/2000 Hepatitis C Screening 2003 Hepatitis B Vaccines (1 of 3 - 19+ 3-dose series) 02/29/2004 COVID-19 Vaccine (3 - 2023-2 5 season) 2023 04/25/2022, 03/27/2022 Influenza Vaccine (#1) 2024 DTaP/Tdap/Td Vaccines (2 - T d or Tdap) 03/18/2031 03/18/2021 Zoster Vaccines (1 of 2) 2035 RSV Patients and Patients Aged 60 years or older (1 - 1-dose 75+ series) 02/29/2060 Hepatitis A Vaccines Aged Out 03/04/2023 No long er eligible based on patient's age to complete this topic HIB Vaccines Aged Out No longer eligi ble based on patient's age to complete this topic IPV Vaccines Aged Out No longer eligi ble based on patient's age to complete this topic Meningococcal B Vaccine Aged Out No l onger eligible based on patient's age to complete this topic Meningococcal Vaccine Aged Out No [facility] [employer] eligible based on patient's age to complete this topic Pneumococcal Vaccine: Pediatrics (0 to 5 Years) and At-Risk Patients (6 to 49) Years Aged Out No longer eligible b ased on patient's age to complete this topic RSV under 20 months Aged Out No longe r eligible based on patient's age to complete this topic Rotavirus Vaccines Aged Out No longer eligible based on patient's age to complete this topic Procedures Procedure Name Priority Date/Time Associated Diagnosis Comments POCT MERARY-14 URINE DRUG SCREEN Routine 08/05/2024 10:28 AM EDT Opioid type dependence, continuous (CMS/HCC) POCT MERARY-14 URINE DRUG SCREEN Routine 06/30/2024 10:27 AM EDT Uncomplicated opioid dependence ([facility]) from Last 3 Months Results * (ABNORMAL) POCT MERARY-14 Urine Drug Screen (08/05/2024 10:28 AM EDT) Only the most recent of2 resultswithin the time period is included. THC Negative Negative Cocaine Screen, Urine Positive(A) Negative Opiate Screen, Urine Positive(A) Negative Methamphetamine Screen Urine Negative Negative Amphetamine Screen, Urine Negative Negative Benzodiazepines Screen, Urine Negative Negative Barbiturate Screen, Urine Negative Negative Methadone Screen, Urine Negative Negative Buprenophine Screen, Urine Positive(A) Negative TCA, Urine Negative Negative MDMA Urine Negative Negative ng/mL Oxycodone Screen, Urine Negative Negative Phencyclidine (PCP), Urine Negative Negative Fentanyl, Urine Positive(A) Negative Urine Urine specimen obtained by clean catch procedure / Unknown 08/05/2024 10:28 AM EDT Aide Sandoval MD POINT OF CARE TEST ENTER/SANTOSH T ORDERABLES Final Result from Last 3 Months Insurance [facility] C3
--- NOTE | 2024-08-20 12:43 | ED_ITS ---
HPI - Psych General Chief Complaint: ETOH/Substance Use Stated Complaint: drug use lethargic Time Seen by Provider: 08/20/24 12:08 Source: patient, EMS and old records reviewed Mode of arrival: EMS Limitations: no limitations History of Present Illness ED Provider: SEBASTIAN VALLEJO Narrative: 39 yo male with PMH of opiate use disorder here with c/o injecting heroin and PD found him sitting dozing off. No head trauma, no SI, He states he is on methadone and doesn't want help with detox. He states he has no issues and needs to sleep. complaint: feels depressed and substance abuse Duration: constant History of same: Yes Relieving factors: none Exacerbating factors: drug use Context: recent drug abuse Associated psychiatric symptoms: none Associated symptoms: denies other symptoms Treatments prior to arrival: none Related Data Previous Rx's ?Medication ?Instructions ?Recorded cephalexin 500 mg capsule 500 mg PO Q6H 10 days #40 ca ps 02/28/22 doxycycline hyclate 100 mg tablet 100 mg PO BID #20 ta bs 02/28/22 prednisone 20 mg tablet 40 mg (2 x 20 mg) PO DAILY 5 days 03/15/23 #10 tabs Allergies Allergy/AdvReac Type Severity Reaction Status Date / Time amoxicillin Allergy Unknown Verified 08/20/24 12:11 Review of Systems Review of Systems: Constitutional : No Fever, No Chills, No Fatigue ENT/Mouth : No sore throat, No Rhinorrhea Eyes: No Eye Pain, No Swelling, No Redness Cardiovascular : No Chest Pain, No SOB, No Dyspnea on Exertion Respiratory : No Cough, No Sputum Gastrointestinal : No Nausea, No Vomiting, No Diarrhea, No abdominal Pain Genitourinary : No Dysuria, No Urinary Frequency, No Hematuria, Musculoskeletal : No joint pain, No Myalgias, No Joint Swelling Skin : No Skin Lesions, No rash Neuro : No Weakness, No Numbness, No Dizziness, no Headache All other systems reviewed and are negative PMFSH Past Medical History Medical History Cellulitis and abscess of face Surgical History S/P appendectomy H/O: vasectomy Social History Social History Unable to assess alcohol history related to: Refusing to respond Alcohol intake: current Alcohol intake frequency: other Substance Use Type: Heroin and Opiates Advance Directives: No Advance Directives Information Provided: Yes Do you have a plan to hurt others: No Plan Physical Exam Vital Signs: Vital Signs: Last Vital Signs Temp 98.1 F 08/20/24 14:59 Pulse 74 08/20/24 14:59 Resp 17 08/20/24 14:59 BP 109/63 08/20/24 14:59 Pulse Ox 100 08/20/24 14:59 O2 Del Method Room Air 08/20/24 14:59 BMI result Body Mass Index 28.3 Appearance: Sleepy but easily woken by verbal stimuli. Oriented X3. No acute distress. Eyes: Pupils equal, round and reactive to light. ENT: Pharynx normal. Old scar and scab on forehead no new trauma seen Neck: Normal inspection. Neck supple. CVS: Normal heart rate and rhythm. Pulses normal. Respiratory: No respiratory distress. Breath sounds normal. Abdomen: Soft and nontender. Skin: Skin warm and dry. Normal skin color. Normal skin turgor. Extremities: No lower extremity edema. Neuro: Oriented X 3. No motor deficit. No sensory deficit. CN2-12 intact Medications Administered Discontinued Medications Generic Name Dose Route Start Last Admin Trade Name Zhou PRN Reason Stop Dose Admin Naloxone HCl 8 mg 08/20/24 12:20 08/20/24 14:54 Naloxone Hcl Nasal Take Home 4 Mg [place] NOSTRILALT 08/20/24 12:21 8 mg ONCE ONE Administration Medical Decision Making Medical Decision Making MDM Narrative: 39 yo male with PMH of opiate use disorder now here with c/o using but no narcan given he declines MAT/SUDE has no SI at this time will monitor and give him narcan Differential Diagnosis Differential Diagnoses: The differential diagnosis associated with the presentation includes opiate use disorder Admission/Observation Consideration of admission/observation: Escalation of care including admission/observation considered BS stable, VS stable will monitor until more awake, her refuses all services up awake alert no need for narcan steady gait Independent Historian Clinical information obtained from an independent historian. History obtained from or confirmed by: EMS External Record Review External record reviewed: Outpatient record Social Determinants Patient?s care significantly limited by Social Determinants of Health including: Inadequate housing and Problems related to primary support group Discharge Plan Discharge Clinical Impression: Opiate use Patient Disposition: Home, Self-Care Instructions: Opioid Use Disorder (ED) Additional Instructions: Opiate use disorder You were seen in our Emergency Department today for treatment of opiate use disorder. You may have been dosed with medication for opiate use disorder (MOUD) in the form of suboxone or methadone. You may experience feeling some withdrawal symptoms and this is normal. The? dose in the Emergency Department is a starting dose and meant to be titrated up once you follow up with a clinic. Please do not feel discouraged, it is a process. The nurse has reviewed with you where to follow up and what information to bring with you, to continue treatment. You also may have been given naloxone (narcan) to take home with you. This medication is used to potentially treat opiate overdose. If you decide you want to stop or cut down on how much you?re using, you can call or walk into our outpatient Addiction Treatment office: [facility] (M-F 9am-5p) [address] [place] [address], [address] [phone] You may have been provided with safer injection?items, please take time to take care of YOU and your health. Use new supplies whenever possible to lessen the chances of infections and other illnesses.? ?If you need more supplies, please go [facility],? [address] [place] [address] [place] you can call or text to coordinate delivery of safer supplies. You were also provided a list of several treatment providers in the area.? If you experience any worsening symptoms you cannot control please return to the ED or call 911. Please follow up at your next appointment. Things to look out for are fevers, chest pain, shortness of breath, severe pain, dizziness, fainting or any other concerns. Prescriptions: No Action doxycycline hyclate 100 mg tablet 100 mg PO BID Qty: 20 0RF cephalexin 500 mg capsule 500 mg PO Q6H 10 Days Qty: 40 0RF prednisone 20 mg tablet 40 mg PO DAILY 5 Days Qty: 10 0RF Interventions: ED Discharge Assessment Last Done: 08/20/24 14:59 Discharge Date/Time: 08/20/24 14:59 Print Language: Finnish
[2024-08-20] MEDS: Naloxone HCl Nasal TAKE HOME 4 MG SPRAY 8 MG NOSTRILALT (14:54)
[2024-08-20 14:56] VITALS: BP 109/63; PULSE 74; RESP 17; TEMP 36.7; O2SAT 100
[2024-08-20 14:59] VITALS: BP 109/63; PULSE 74; RESP 17; TEMP 36.7; O2SAT 100
== END 2024-08-20 14:59 | disposition home or self-care (01) ==
PROVIDERS: Emergency Provider Emergency Medicine
DX: F19.10 Other psychoactive substance abuse, uncomplicated (principal); F32.A Depression, unspecified; F11.20 Opioid dependence, uncomplicated
CPT/HCPCS: 99283; 99284